=== PATIENT | female | born 1955 | race Caucasian/White ===

== ENCOUNTER 2017-08-16 16:46 | Inpatient (IN) | payer MEDICARE, MEDICAID ==
--- NOTE | 2017-08-16 17:03 | ED Physician Chart ---
ED Chief Complaint/HPI - Patient Information Date Seen:: 08/16/17 Time Seen:: 16:50 Chief Complaint:: AMS History of Present Illness:: onset x one day of AMS, ALOC; no report of trauma, H/As, LOC, neck pain, C/P, SOB, cough, Abd/Flank pain, A/N/V/D/C, fever, chills or urinary s/s Historian:: Patient, EMS Review:: Nurse's Note Reviewed, EMS run form Reviewed <Justice Smith - Last Filed: 08/16/17 16:59> - Patient Information Allergies:: Allergies Allergy/AdvReac Type Severity Reaction Status Date / Time Tetanus Vaccines & Toxoid Allergy Verified 08/16/17 17:05 Vitals:: Vital Signs - 8 hr 08/16/17 08/16/17 08/16/17 17:05 18:05 19:03 Temp 97.3 F 98.5 F HR 89 79 87 RR 18 14 20 BP 141/90 146/83 138/65 O2 Sat % 92 98 96 <Leonardo Perez - Last Filed: 08/16/17 20:10> ED Review of Systems - Review of Systems General/Constitutional: No fever, No chills, No weight loss, No weakness, No diaphoresis, No edema, No loss of appetite Skin: No skin lesions, No rash, No bruising Head: No headache, No light-headedness Eyes: No loss of vision, No pain, No diplopia ENT: No earache, No nasal drainage, No sore throat, No tinnitus Neck: No neck pain, No swelling, No thyromegaly, No stiffness, No mass noted Cardio Vascular: No chest pain, No palpitations, No PND, No orthopnea, No edema Pulmonary: No SOB, No cough, No sputum, No wheezing GI: No nausea, No vomiting, No diarrhea, No pain, No melena, No hematochezia, No constipation, No hematemesis G/U: No dysuria, No frequency, No hematuria Musculoskeletal: No bone or joint pain, No back pain, No muscle pain Endocrine: No polyuria, No polydipsia Psychiatric: No prior psych history, No depression, No anxiety, No suicidal ideation Hematopoietic: No bruising, No lymphadenopathy Allergic/Immuno: No urticaria, No angioedema Neurological: Syncope, Focal symptoms, Weakness, Paresthesia, Headache, No seizure, Dizziness, Confusion, Vertigo <Justice Smith - Last Filed: 08/16/17 16:59> ED Past Medical History - Past Medical History Obtainable: Yes Past Medical History: HTN, CVA/TIA, Dyslipidemia, Other (MS) Family History: Diabetes Melitus, HTN Social History: Non Smoker, No Alcohol, No Drug Use, Single, Care Facility Surgical History: None Psychiatricy History: None Medication: Reviewed <Justice Smith - Last Filed: 08/16/17 16:59> ED Physical Exam - Physical Examination General/Constitutional: Awake, Well-developed, well-nourished, Alert, No distress, GCS 15, Non-toxic appearing, Ambulatory Head: Atraumatic Eyes: Lids, conjuctiva normal, PERRL, EOMI Skin: Nl inspection, No rash, No skin lesions, No ecchymosis, Well hydrated, No lymphadenopathy ENMT: External ears, nose nl, Nasal exam nl, Lips, teeth, gums nl Neck: Nontender, Full ROM w/o pain, No JVD, No nuchal rigidity, No bruit, No mass, No stridor Respiratory: Nl effort/Exclusion, Clear to Auscultation, No Wheeze/Rhonchi/Rales Cardio Vascular: RRR, No murmur, gallop, rubs, NL S1 S2 GI: No tenderness/rebounding/guarding, No organomegaly, No hernia, Normal BS's, Nondistended, No mass/bruits, No McBurney tenderness : No CVA tenderness Extremities: No tenderness or effusion, Full ROM, normal strength in all extremities, No edema, Normal digits & nails Neuro/Psych: Alert/oriented, DTR's symmetric, Normal sensory exam, Normal motor strength, Judgement/insight normal, Mood normal, Normal gait Other Neuro/Psych comments:: + Quadriplegia Misc: Normal back, No paraspinal tenderness <Justice Smith - Last Filed: 08/16/17 16:59> ED Labs/Radiology/EKG Results - Lab Results Results: Laboratory Tests 08/16/17 08/16/17 08/16/17 17:15 17:15 17:15 WBC 10.5 RBC 4.06 Hgb 11.9 L Hct 33.8 L MCV 83.3 MCH 29.3 MCHC Differential 35.1 RDW 14.1 Plt Count 454 H MPV 7.3 Neutrophils (Manual) 59 Lymphocytes 36 Monocytes 5 PT INR PTT (Actin FS) Sodium 129 L Potassium 3.8 Chloride 98 Carbon Dioxide 25.3 Anion Gap 9.5 BUN 12 Creatinine 0.3 L Est GFR ( Amer) > 60.0 Est GFR (Non-Af Amer) > 60.0 BUN/Creatinine Ratio 40.0 Glucose 96 Whole Bld Lactic Acid Calcium 8.5 L Total Bilirubin 5.2 H AST 153 H ALT 380 H Alkaline Phosphatase 678 H Creatine Kinase 15 L Troponin I B-Natriuretic Peptide 20.0 Total Protein 6.9 Albumin 3.4 L Globulin 3.5 Albumin/Globulin Ratio 1.0 Triglycerides 128 Cholesterol 329 H LDL Cholesterol Direct 209 H HDL Cholesterol 37 Urine Source Urine Color Urine Clarity Urine pH Ur Specific [place] Urine Protein Urine Glucose (UA) Urine Ketones Urine Blood Urine Nitrate Urine Bilirubin Urine Urobilinogen Ur Leukocyte Esterase Urine RBC Urine WBC Ur Epithelial Cells Amorphous Sediment Urine Bacteria Urine Test 08/16/17 08/16/17 08/16/17 17:15 17:15 17:15 WBC RBC Hgb Hct MCV MCH MCHC Differential RDW Plt Count MPV Neutrophils (Manual) Lymphocytes Monocytes PT 11.9 H INR 1.13 PTT (Actin FS) 31.3 Sodium Potassium Chloride Carbon Dioxide Anion Gap BUN Creatinine Est GFR ( Amer) Est GFR (Non-Af Amer) BUN/Creatinine Ratio Glucose Whole Bld Lactic Acid Calcium Total Bilirubin AST ALT Alkaline Phosphatase Creatine Kinase Troponin I 0.02 B-Natriuretic Peptide Total Protein Albumin Globulin Albumin/Globulin Ratio Triglycerides Cholesterol LDL Cholesterol Direct HDL Cholesterol Urine Source CLEAN C Urine Color YELLOW Urine Clarity HAZY Urine pH 7.0 Ur Specific [place] 1.015 Urine Protein 100 H Urine Glucose (UA) NEGATIVE Urine Ketones NEGATIVE Urine Blood NEGATIVE Urine Nitrate POSITIVE H Urine Bilirubin MODERATE H Urine Urobilinogen 0.2 Ur Leukocyte Esterase TRACE H Urine RBC 0-1 Urine WBC 2-5 Ur Epithelial Cells MODERATE Amorphous Sediment MANY URATES Urine Bacteria MANY Urine Test 08/16/17 08/16/17 17:15 17:15 WBC RBC Hgb Hct MCV MCH MCHC Differential RDW Plt Count MPV Neutrophils (Manual) Lymphocytes Monocytes PT INR PTT (Actin FS) Sodium Potassium Chloride Carbon Dioxide Anion Gap BUN Creatinine Est GFR ( Amer) Est GFR (Non-Af Amer) BUN/Creatinine Ratio Glucose Whole Bld Lactic Acid 0.81 Calcium Total Bilirubin AST ALT Alkaline Phosphatase Creatine Kinase Troponin I B-Natriuretic Peptide Total Protein Albumin Globulin Albumin/Globulin Ratio Triglycerides Cholesterol LDL Cholesterol Direct HDL Cholesterol Urine Source Urine Color Urine Clarity Urine pH Ur Specific [place] Urine Protein Urine Glucose (UA) Urine Ketones Urine Blood Urine Nitrate Urine Bilirubin Urine Urobilinogen Ur Leukocyte Esterase Urine RBC Urine WBC Ur Epithelial Cells Amorphous Sediment Urine Bacteria Urine Test NEGATIVE Laboratory Tests 08/16/17 08/16/17 08/16/17 17:15 17:15 17:15 WBC 10.5 RBC 4.06 Hgb 11.9 L Hct 33.8 L MCV 83.3 MCH 29.3 MCHC Differential 35.1 RDW 14.1 Plt Count 454 H MPV 7.3 Neutrophils (Manual) 59 Lymphocytes 36 Monocytes 5 PT INR PTT (Actin FS) Sodium 129 L Potassium 3.8 Chloride 98 Carbon Dioxide 25.3 Anion Gap 9.5 BUN 12 Creatinine 0.3 L Est GFR ( Amer) > 60.0 Est GFR (Non-Af Amer) > 60.0 BUN/Creatinine Ratio 40.0 Glucose 96 Whole Bld Lactic Acid Calcium 8.5 L Total Bilirubin 5.2 H AST 153 H ALT 380 H Alkaline Phosphatase 678 H Creatine Kinase 15 L Troponin I B-Natriuretic Peptide 20.0 Total Protein 6.9 Albumin 3.4 L Globulin 3.5 Albumin/Globulin Ratio 1.0 Triglycerides 128 Cholesterol 329 H LDL Cholesterol Direct 209 H HDL Cholesterol 37 Urine Source Urine Color Urine Clarity Urine pH Ur Specific [place] Urine Protein Urine Glucose (UA) Urine Ketones Urine Blood Urine Nitrate Urine Bilirubin Urine Urobilinogen Ur Leukocyte Esterase Urine RBC Urine WBC Ur Epithelial Cells Amorphous Sediment Urine Bacteria Urine Test 08/16/17 08/16/17 08/16/17 17:15 17:15 17:15 WBC RBC Hgb Hct MCV MCH MCHC Differential RDW Plt Count MPV Neutrophils (Manual) Lymphocytes Monocytes PT 11.9 H INR 1.13 PTT (Actin FS) 31.3 Sodium Potassium Chloride Carbon Dioxide Anion Gap BUN Creatinine Est GFR ( Amer) Est GFR (Non-Af Amer) BUN/Creatinine Ratio Glucose Whole Bld Lactic Acid Calcium Total Bilirubin AST ALT Alkaline Phosphatase Creatine Kinase Troponin I 0.02 B-Natriuretic Peptide Total Protein Albumin Globulin Albumin/Globulin Ratio Triglycerides Cholesterol LDL Cholesterol Direct HDL Cholesterol Urine Source CLEAN C Urine Color YELLOW Urine Clarity HAZY Urine pH 7.0 Ur Specific [place] 1.015 Urine Protein 100 H Urine Glucose (UA) NEGATIVE Urine Ketones NEGATIVE Urine Blood NEGATIVE Urine Nitrate POSITIVE H Urine Bilirubin MODERATE H Urine Urobilinogen 0.2 Ur Leukocyte Esterase TRACE H Urine RBC 0-1 Urine WBC 2-5 Ur Epithelial Cells MODERATE Amorphous Sediment MANY URATES Urine Bacteria MANY Urine Test 08/16/17 08/16/17 17:15 17:15 WBC RBC Hgb Hct MCV MCH MCHC Differential RDW Plt Count MPV Neutrophils (Manual) Lymphocytes Monocytes PT INR PTT (Actin FS) Sodium Potassium Chloride Carbon Dioxide Anion Gap BUN Creatinine Est GFR ( Amer) Est GFR (Non-Af Amer) BUN/Creatinine Ratio Glucose Whole Bld Lactic Acid 0.81 Calcium Total Bilirubin AST ALT Alkaline Phosphatase Creatine Kinase Troponin I B-Natriuretic Peptide Total Protein Albumin Globulin Albumin/Globulin Ratio Triglycerides Cholesterol LDL Cholesterol Direct HDL Cholesterol Urine Source Urine Color Urine Clarity Urine pH Ur Specific [place] Urine Protein Urine Glucose (UA) Urine Ketones Urine Blood Urine Nitrate Urine Bilirubin Urine Urobilinogen Ur Leukocyte Esterase Urine RBC Urine WBC Ur Epithelial Cells Amorphous Sediment Urine Bacteria Urine Test NEGATIVE <Leonardo Perez - Last Filed: 08/16/17 20:10> ED Septic Shock - . Is Septic Shock (SBP<90, OR Lactate>4 mmol\L) present?: No <Justice Smith - Last Filed: 08/16/17 16:59> - . Is Septic Shock (SBP<90, OR Lactate>4 mmol\L) present?: No - <6hrs of presentation: Vital Signs: Vital Signs - 8 hr 08/16/17 08/16/17 08/16/17 17:05 18:05 19:03 Temp 97.3 F 98.5 F HR 89 79 87 RR 18 14 20 BP 141/90 146/83 138/65 O2 Sat % 92 98 96 <Leonardo Perez - Last Filed: 08/16/17 20:10> ED Reassessment (Disposition) - Reassessment Reassessment:: pt in stable condition altered consciousness head CT atrophy old left parietal infarct RAD READ - Diagnosis Diagnosis:: altered level of consciousness - Patient Disposition Discharge/Transfer:: Acute Care w/in this hosp Admitting Medical Physician:: Alexandra Oswald Time:: 20:10 Condition at Disposition:: Stable <Leonardo Perez - Last Filed: 08/16/17 20:10>
[2017-08-16] MEDS ORDERED: Sodium Chloride 0.9% 1,000 ML IV ONE (17:04)
[2017-08-16 17:16] LABS: HEMATOCRIT 33.8 % (41.0-60); HEMOGLOBIN 11.9 gm/dL (12-16); MEAN CELL VOLUME 83.3 fl (81-100); MEAN CORPUSCULAR HEMOGLOBIN 29.3 pg (27.0-31.0); MEAN CORPUSCULAR HGB CONC 35.1 pg (28.0-36.0); MEAN PLATELET VOLUME 7.3 fl; PLATELET COUNT 454 Th/cmm (150-400); RED BLOOD COUNT 4.06 Mil/cmm (3.80-5.10); RED CELL DISTRIBUTION WIDTH 14.1 % (11.5-20.0); WHITE BLOOD COUNT 10.5 Th/cmm (4.8-10.8)
[2017-08-16 17:35] LABS: URINE BILIRUBIN MODERATE (NEGATIVE); URINE BLOOD NEGATIVE (NEGATIVE); URINE GLUCOSE (UA) NEGATIVE (NEGATIVE); URINE KETONE NEGATIVE (NEGATIVE); URINE PROTEIN 100 mg/dL (NEGATIVE); URINE UROBILINOGEN 0.2 E.U./dL (0.2 - 1.0)
[2017-08-16 17:36] LABS: INR 1.13 (0.5-1.4); PROTHROMBIN TIME (TEST) 11.9 SECONDS (9.5-11.5)
[2017-08-16 17:39] LABS: URINE COLOR YELLOW
[2017-08-16 17:40] LABS: ALKALINE PHOSPHATASE 678 U/L (34-104); ANION GAP 9.5 (7.0-16.0); BILIRUBIN,TOTAL 5.2 mg/dL (0.3-1.0); BUN - UREA NITROGEN 12 mg/dL (7-25); CALCIUM SERUM 8.5 mg/dL (8.6-10.3); CARBON DIOXIDE 25.3 mEq/L (21.0-31.0); CHLORIDE 98 mEq/L (98-107); CHOLESTEROL 329 mg/dL (<200); CREATININE - SERUM 0.3 mg/dL (0.6-1.2); GLUCOSE 96 mg/dL (70-105); POTASSIUM SERUM 3.8 mEq/L (3.5-5.1); SGOT 153 U/L (13-39); SGPT/ALT 380 U/L (7-52); SODIUM SERUM 129 mEq/L (136-145); TRIGLYCERIDES 128 mg/dL (<150)
[2017-08-16 17:41] LABS: URINE AMORPHOUS SEDIMENT MANY URATES (NONE SEEN); URINE BACTERIA MANY /hpf (NONE SEEN); URINE RBC 0-1 /hpf (0-5)
[2017-08-16 17:42] LABS: URINE EPITHELIAL CELLS MODERATE /lpf (FEW)
[2017-08-16 18:06] LABS: NEUTROPHILS 59 % (40-80)
[2017-08-16] MEDS ORDERED: Hydrocodone/APAP 5mg/325mg Tab PO PRN (23:59)
[2017-08-16] MEDS ORDERED: Fleet Enema 135 mL RC PRN (23:59)
[2017-08-16] MEDS ORDERED: Levofloxacin 500mg/100mL 500 MG/100 ML BAG IV ONE (23:59)
[2017-08-17 00:16] VITALS: BP 146/91
[2017-08-17] MEDS: Sodium Chloride 0.9% 1,000 ML IV SCH (00:22)
[2017-08-17 05:26] LABS: HEMATOCRIT 32.5 % (41.0-60); HEMOGLOBIN 11.1 gm/dL (12-16); MEAN CELL VOLUME 82.5 fl (81-100); MEAN CORPUSCULAR HEMOGLOBIN 28.1 pg (27.0-31.0); MEAN CORPUSCULAR HGB CONC 34.1 pg (28.0-36.0); MEAN PLATELET VOLUME 7.4 fl; PLATELET COUNT 391 Th/cmm (150-400); RED BLOOD COUNT 3.94 Mil/cmm (3.80-5.10); RED CELL DISTRIBUTION WIDTH 14.3 % (11.5-20.0)
[2017-08-17 05:34] LABS: ANION GAP 8.9 (7.0-16.0); BUN - UREA NITROGEN 9 mg/dL (7-25); CALCIUM SERUM 8.4 mg/dL (8.6-10.3); CARBON DIOXIDE 25.7 mEq/L (21.0-31.0); CHLORIDE 102 mEq/L (98-107); GLUCOSE 94 mg/dL (70-105); POTASSIUM SERUM 3.6 mEq/L (3.5-5.1); SODIUM SERUM 133 mEq/L (136-145)
[2017-08-17 05:41] LABS: CREATININE - SERUM 0.3 mg/dL (0.6-1.2)
[2017-08-17 05:55] LABS: BAND NEUTROPHILE 1 % (0-10); EOSINOPHIL 2 % (0-5); NEUTROPHILS 67 % (40-80); TOTAL CELLS COUNTED 100; WHITE BLOOD COUNT 7.4 Th/cmm (4.8-10.8)
[2017-08-17] MEDS: Levothyroxine 0.05 Mg Tab PO SCH (07:04)
--- NOTE | 2017-08-17 08:19 | Diagnostic Imaging Report ---
Head CT without intravenous contrast Indication: Altered mental status Comparison: None Technique: Axial images were obtained from the vertex to the skull base without IV contrast. Coronal reconstructions were made. Total DLP: 896, [id number] FINDINGS: Images of the brain obtained without contrast demonstrate no evidence of a gross hemorrhage. Exam is limited due to motion. Atrophy is noted. Diffuse white matter disease is noted. The ventricles and basal cisterns are patent. No mass effect or midline shift. Assessment for skull fractures limited due to motion. No significant focal soft tissue swelling. The visualized paranasal sinuses are clear. IMPRESSION: Limited exam due to motion. No evidence of acute intracranial hemorrhage Atrophy. Diffuse supratentorial white matter disease which is nonspecific and may be due to chronic microvessel ischemia.. If indicated MRI may be obtained for further assessment.
--- NOTE | 2017-08-17 08:22 | Diagnostic Imaging Report ---
Portable chest x-ray HISTORY: Pain The overall heart size is difficult to assess with portable technique and a poor inspiration. No focal bony processes. No hilar or mediastinal abnormalities. IMPRESSION: No acute focal pulmonary processes.
[2017-08-17] MEDS ORDERED: LACTOSE REDUCED FOOD PO SCH (09:00)
[2017-08-17] MEDS ORDERED: Docusate Sodium/Senna Tab PO SCH (09:00)
[2017-08-17] MEDS ORDERED: Non-Formulary Item 1 EA (Omeprazole [Omeprazole] 20 MG) PO SCH (09:00)
[2017-08-17] MEDS ORDERED: [UNRECOGNIZED DRUG - OTHER] PO SCH (09:00)
[2017-08-17] MEDS: Pantoprazole 40 mg EC Tab PO SCH (10:00)
[2017-08-17] MEDS: Multivitamin w/ Minerals Tab PO SCH (10:00)
[2017-08-17] MEDS: Aspirin 81mg Chewable Tab PO SCH (10:00)
[2017-08-17] MEDS ORDERED: Influenza Vaccine 0.5 mL Syr IM ONE (14:26)
[2017-08-17] MEDS ORDERED: Pneumococcal Vaccine 0.5 mL Vial IM ONE (14:26)
[2017-08-17] MEDS ORDERED: VTE Chemical Prophylaxis Screen/Admission MC PRN (14:59)
[2017-08-17] MEDS ORDERED: Probiotic Screen MC PRN (15:48)
--- NOTE | 2017-08-17 20:49 | History & Physical ---
ADMIT DATE: 08/17/2017 HISTORY OF PRESENT ILLNESS: The patient came because of the altered level of consciousness. The patient has no history of trauma, no history of any other problem. The patient was seen in the Emergency Room, was evaluated, and was admitted for history of altered level of consciousness, history of prior quadriplegia, and the patient is known to have history of hypertension, history of CVA, and history of hyperlipidemia . FAMILY HISTORY: Diabetes. PHYSICAL EXAMINATION CARDIOVASCULAR SYSTEM: S1, S2 heard. ABDOMEN: Soft. Bowel sounds are present. CENTRAL NERVOUS SYSTEM: The patient has history of quadriparesis. LABORATORY DATA: The patient's BUN of 12, creatinine ___ . The patient's hemoglobin was 11.9. Sodium was low at 129. Electrolytes were normal. Urine showed positive nitrites ____ UTI, and the patient's CAT scan was ____. DIAGNOSES: Altered level of consciousness, metabolic encephalopathy, urinary tract infection, and history of quadriparesis. PLAN: We will give IV antibiotics ____ doctor give her sodium chloride, and I will follow the patient. JOB# [id number]
[2017-08-17] MEDS: Lactobacillus Rhamnosus 10 Billion CFU Capsule PO SCH (21:15)
[2017-08-17] MEDS: Levofloxacin 500mg/100mL Premix Bag IV SCH (21:16)
[2017-08-18] MEDS: Sodium Chloride 0.9% 1,000 ML IV SCH ×2 (01:51→21:32)
[2017-08-18] MEDS: Levothyroxine 0.05 Mg Tab PO SCH (06:55)
[2017-08-18] MEDS ORDERED: GLATIRAMER ACETATE 40 MG SC SCH (09:00)
[2017-08-18] MEDS: Multivitamin w/ Minerals Tab PO SCH (09:58)
[2017-08-18] MEDS: Lactobacillus Rhamnosus 10 Billion CFU Capsule PO SCH (09:58)
[2017-08-18] MEDS: Pantoprazole 40 mg EC Tab PO SCH (09:58)
[2017-08-18] MEDS: Aspirin 81mg Chewable Tab PO SCH (09:59)
--- NOTE | 2017-08-18 12:06 | General Progress Note ---
Subjective - Review of Systems Events since last encounter: patient awake and confused in no acute distress Objective - Results Result Diagrams: 08/17/17 05:01 08/17/17 05:01 Recent Labs: Laboratory Last Values WBC 7.4 Th/cmm (4.8-10.8) D 08/17/17 05:01 RBC 3.94 Mil/cmm (3.80-5.10) 08/17/17 05:01 Hgb 11.1 gm/dL (12-16) L 08/17/17 05:01 Hct 32.5 % (41.0-60) L 08/17/17 05:01 MCV 82.5 fl (81-100) 08/17/17 05:01 MCH 28.1 pg (27.0-31.0) 08/17/17 05:01 MCHC Differential 34.1 pg (28.0-36.0) 08/17/17 05:01 RDW 14.3 % (11.5-20.0) 08/17/17 05:01 Plt Count 391 Th/cmm (150-400) 08/17/17 05:01 MPV 7.4 fl 08/17/17 05:01 Band Neutrophils % 1 % (0-10) 08/17/17 05:01 Neutrophils (Manual) 67 % (40-80) 08/17/17 05:01 Lymphocytes 26 % (20-50) 08/17/17 05:01 Monocytes 4 % (2-10) 08/17/17 05:01 Eosinophils 2 % (0-5) 08/17/17 05:01 PT 11.9 SECONDS (9.5-11.5) H 08/16/17 17:15 INR 1.13 (0.5-1.4) 08/16/17 17:15 PTT (Actin FS) 31.3 SECONDS (26.0-38.0) 08/16/17 17:15 Sodium 133 mEq/L (136-145) L 08/17/17 05:01 Potassium 3.6 mEq/L (3.5-5.1) 08/17/17 05:01 Chloride 102 mEq/L (98-107) 08/17/17 05:01 Carbon Dioxide 25.7 mEq/L (21.0-31.0) 08/17/17 05:01 Anion Gap 8.9 (7.0-16.0) 08/17/17 05:01 BUN 9 mg/dL (7-25) 08/17/17 05:01 Creatinine 0.3 mg/dL (0.6-1.2) L 08/17/17 05:01 Est GFR ( Amer) > 60.0 ml/min (>90) 08/17/17 05:01 Est GFR (Non-Af Amer) > 60.0 ml/min 08/17/17 05:01 BUN/Creatinine Ratio 30.0 08/17/17 05:01 Glucose 94 mg/dL (70-105) 08/17/17 05:01 Whole Bld Lactic Acid 0.81 mmol/L (0.60-1.99) 08/16/17 17:15 Calcium 8.4 mg/dL (8.6-10.3) L 08/17/17 05:01 Total Bilirubin 5.2 mg/dL (0.3-1.0) H 08/16/17 17:15 AST 153 U/L (13-39) H 08/16/17 17:15 ALT 380 U/L (7-52) H 08/16/17 17:15 Alkaline Phosphatase 678 U/L (34-104) H 08/16/17 17:15 Creatine Kinase 15 U/L (30-223) L 08/16/17 17:15 Troponin I 0.02 ng/mL (0.01-0.05) 08/16/17 17:15 B-Natriuretic Peptide 20.0 pg/mL (5.0-100.0) 08/16/17 17:15 Total Protein 6.9 gm/dL (6.0-8.3) 08/16/17 17:15 Albumin 3.4 gm/dL (3.7-5.3) L 08/16/17 17:15 Globulin 3.5 gm/dL 08/16/17 17:15 Albumin/Globulin Ratio 1.0 (1.0-1.8) 08/16/17 17:15 Triglycerides 128 mg/dL (<150) 08/16/17 17:15 Cholesterol 329 mg/dL (<200) H 08/16/17 17:15 LDL Cholesterol Direct 209 mg/dL (75-193) H 08/16/17 17:15 HDL Cholesterol 37 mg/dL (23-92) 08/16/17 17:15 Urine Source CLEAN C 08/16/17 17:15 Urine Color YELLOW 08/16/17 17:15 Urine Clarity HAZY (CLEAR) 08/16/17 17:15 Urine pH 7.0 (4.6 - 8.0) 08/16/17 17:15 Ur Specific [place] 1.015 (1.005-1.030) 08/16/17 17:15 Urine Protein 100 mg/dL (NEGATIVE) H 08/16/17 17:15 Urine Glucose (UA) NEGATIVE mg/dL (NEGATIVE) 08/16/17 17:15 Urine Ketones NEGATIVE mg/dL (NEGATIVE) 08/16/17 17:15 Urine Blood NEGATIVE (NEGATIVE) 08/16/17 17:15 Urine Nitrate POSITIVE (NEGATIVE) H 08/16/17 17:15 Urine Bilirubin MODERATE (NEGATIVE) H 08/16/17 17:15 Urine Urobilinogen 0.2 E.U./dL (0.2 - 1.0) 08/16/17 17:15 Ur Leukocyte Esterase TRACE (NEGATIVE) H 08/16/17 17:15 Urine RBC 0-1 /hpf (0-5) 08/16/17 17:15 Urine WBC 2-5 /hpf (0-5) 08/16/17 17:15 Ur Epithelial Cells MODERATE /lpf (FEW) 08/16/17 17:15 Amorphous Sediment MANY URATES (NONE SEEN) 08/16/17 17:15 Urine Bacteria MANY /hpf (NONE SEEN) 08/16/17 17:15 Urine Test NEGATIVE 08/16/17 17:15 - Physical Exam Vitals and I&O: Vital Signs Temp 98.6 F 08/18/17 11:39 Pulse 99 08/18/17 11:39 Resp 19 08/18/17 11:39 BP 179/92 08/18/17 11:39 Pulse Ox 97 08/18/17 11:39 Intake & Output 08/17/17 08/18/17 08/18/17 18:59 06:59 18:59 Intake Total 823.333 558.333 Output Total 900 950 Balance -76.667 -391.667 Weight (lbs) 53.524 kg 55.877 kg Intake: Intake, IV Amount 423.333 558.333 Levofloxacin 500mg/100mL 100 500 mg In 100 ml @ 100 mls/hr IV Q24HR [facility] Rx#: [id number] Sodium Chloride 0.9% 1, 423.333 458.333 000 ml @ 100 mls/hr IV . Q10H [facility] Rx#:[id number] Oral 400 Output: Urine 900 950 Other: # Bowel Movements 2 Stool Characteristics Soft Active Medications: Current Medications Acetaminophen (Tylenol) 650 mg PO Q4H PRN PRN Reason: PAIN OR FEVER >100.4 Acetaminophen/Hydrocodone Bitart (Dwight 5mg/325mg) 1 tab PO Q4H PRN PRN Reason: PAIN Stop: 10/15/17 23:58 Amlodipine Besylate (Norvasc) 5 mg PO DAILY [facility] Stop: 10/16/17 08:59 Last Admin: 08/18/17 09:59 Dose: 5 mg Ascorbic Acid (Vitamin C) 500 mg PO DAILY [facility] Stop: 10/16/17 08:59 Last Admin: 08/18/17 09:59 Dose: 500 mg Aspirin (Aspirin Chewable) 81 mg PO DAILY [facility] Stop: 10/16/17 08:59 Last Admin: 08/18/17 09:59 Dose: 81 mg Bisacodyl (Dulcolax 10 Mg Supp) 10 mg RC Q72H PRN PRN Reason: CONSTIPATION (NO BM) Stop: 10/15/17 23:58 Carbamazepine (Tegretol) 400 mg PO QID [facility] PRN Reason: Protocol Stop: 10/16/17 08:59 Last Admin: 08/18/17 09:58 Dose: 400 mg Docusate Sodium (Colace) 250 mg PO BID [facility] Stop: 10/16/17 08:59 Last Admin: 08/18/17 09:59 Dose: 250 mg Fluoxetine HCl (Prozac) 10 mg PO DAILY [facility] PRN Reason: Protocol Stop: 10/16/17 08:59 Last Admin: 08/18/17 10:45 Dose: 10 mg Heparin Sodium (Porcine) (Heparin) 5,000 units SUBQ Q12HR [facility] Stop: 10/16/17 20:59 Last Admin: 08/18/17 10:46 Dose: 5,000 units Sodium Chloride (Nacl 0.9%) 1,000 mls @ 100 mls/hr IV .Q10H [facility] Stop: 10/15/17 23:58 Last Infusion: 08/18/17 06:26 Dose: 100 mls/hr Levofloxacin (Levaquin Pb) 500 mg in 100 mls @ 100 mls/hr IV Q24HR [facility] Stop: 10/16/17 20:59 Last Infusion: 08/18/17 06:26 Dose: Infused Lactobacillus Rhamnosus (Culturelle) 1 each PO DAILY [facility] Stop: 10/16/17 16:59 Last Admin: 08/18/17 09:58 Dose: 1 each Levothyroxine Sodium (Synthroid) 0.05 mg PO QDAC [facility] Stop: 10/16/17 07:29 Last Admin: 08/18/17 06:55 Dose: 0.05 mg Miscellaneous (Glatiramer Acetate [Copaxone]) 40 mg SC MWF [facility] Stop: 10/17/17 08:59 Miscellaneous (Vte Chemical Prophylaxis Screen/ Admission) 1 ea PRN PRN PRN Reason: PROTOCOL Stop: 10/16/17 14:58 Miscellaneous (Probiotic Screen) 1 ea PRN PRN PRN Reason: PROTOCOL Stop: 10/16/17 15:47 Pantoprazole Sodium (Protonix) 40 mg PO DAILY [facility] Stop: 10/16/17 08:59 Last Admin: 08/18/17 09:58 Dose: 40 mg Sodium Phosphate (Fleet Enema) 135 ml RC Q24H PRN PRN Reason: Constipation Stop: 10/15/17 23:58 General: No acute distress HEENT: Atraumatic Neck: Thyromegaly Cardiovascular: Regular rate, Normal S1 Abdomen: Bowel sounds Assessment/Plan - Problem List Patient Problems: All Active Problems ALTERED MENTAL STATUS WITH FEVER (Acute) - Plan Plan: as per order sheet Nutritional Asmnt/Malnutr-PDOC - Dietary Evaluation Malnutrition Findings (Please click <Entered> for more info): Nutritional Asmnt/Malnutrition Start: 08/17/17 17: 13 Text: Status: Complete Freq: Document 08/17/17 17:13 VTAN (Rec: 08/17/17 17:29 [email or web address]) Nutritional Asmnt/Malnutrition Patient General Information Nutritional Screening Consult Diagnosis UTI, ALOC Pertinent Medical Hx/Surgical Hx HTN, CVA/TIA, dyslipidemia, MS , DM, HTN Subjective Information Nutrition Consult for Vince Score 11. Pt was seen resting in bed, RN at bedside providing meds. Spoke with [facility] RN, reported that suspected DTI L heel. Current Diet Order/ Nutrition Support Mechanical Soft, Ground, BASHIR Patient / S.O Can't verbalize diet edu Pertinent Medications Vitamin C 500 mg daily, dulcolax, colace, heparin, culturelle, synthroid, protonix, NS IV, fleet enema Pertinent Labs H/H 11.1/32.5 L, Na 133 L, Cr 0.3 L, Gluc 94 08/16: TBili 5.2 H, AST 153 H, ALT 380 H, ALP 678 H, CK 15 L , ALB 3.4 L, Cholesterol 329 H Nutritional Hx/Data Height 1.63 m Height (Calculated Centimeters) 162.6 Current Weight (lbs) 53.524 kg Weight (Calculated Kilograms) 53.5 Weight (Calculated Grams) 41503.9 Avant Body Weight 120 lb, 55 kg % Avant Body Weight 98 Weight Status Approriate GI Symptoms GI Symptoms None Difficult in: Chewing Food Allergies No 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 Per [facility] RN note - possible SDTI L posterior Heel Estimated Nutritional Goals BEE in Kcals: Using Current wt Calories/Kcals/Kg 25-30 kcal/kg for Maintenance Kcals Calculated 1559-3994 kcal/day Protein: Using Current wt Protein g/k.3-1.5 gm/kg for Wound Healing Protein Calculated 70-81 gm/day Fluid: ml 3351-3834 ml/day (1 ml/kcal for Maintenance) Nutritional Problem 1. Problem Problem Increase protein needs related to Etiology altered skin integrity as evidenced by Signs/Symptoms: possible suspected DTI on L posterior heel Intervention/Recommendation Recommendations by RD Protein supplementation Comments 1. Continue Mechanical Soft, Ground, BASHIR diet per MD. 2. Consider Boost Glucose Control BID (500 kcal, 28 gm protein) if PO intakes consistently <50%. 3. Recommend Multi-vitamin with minerals (Theragran) 1 tab PO daily for optimal wound healing. 4. Consider Zinc Sulfate 220 mg x10 days for optimal wound healing. Expected Outcomes/Goals Expected Outcomes/Goals Goal: PO intakes to meet >80% of estimated needs; Nutrition wound healing protocol in place Monitor: PO intakes/tolerance, labs, skin integrity, GI function F/U 3-5 days as MODERATE risk (08/20-)
[2017-08-18] MEDS: Levofloxacin 500mg/100mL Premix Bag IV SCH (21:24)
--- NOTE | 2017-08-18 22:41 | Consultation ---
DATE OF CONSULTATION: 08/18/2017 ATTENDING: Dr. Vinay Oswald. CERTIFIED MEDICINE AIDE: Kishor Vasques M.D. REASON FOR CONSULTATION: Hyponatremia and fluid management. HISTORY OF PRESENT ILLNESS: This is a 62-year-old female with a past medical history of multiple sclerosis, who came in because of altered level of consciousness. Fifteen years prior to admission, the patient was diagnosed to have multiple sclerosis. She has had multiple admissions in the past for management of her multiple sclerosis. A few hours prior to admission, she was found [facility] staff to have an altered level of consciousness. She was then brought to the Emergency Room. A CT scan of the head revealed no acute intracranial hemorrhage, atrophy, and microscopic vessel ischemia. Chest x-ray showed no acute disease. However, a urinalysis was suggestive of a urinary tract infection. White count was 10.5. Her sodium level was 137 about 3 months ago and 135 last month. However, she came in now with a sodium of 129. PAST MEDICAL HISTORY: 1. Multiple sclerosis. 2. Essential hypertension. 3. Epilepsy. 4. Dyslipidemia. 5. Osteoporosis. 6. Functional quadriplegia. 7. Major depression. 8. TMJ. 9. Dementia. PAST SURGICAL HISTORY: Status post total abdominal hysterectomy. CURRENT MEDICATIONS: She is currently on acetaminophen, amlodipine, ascorbic acid, aspirin, bisacodyl, Tegretol, Colace, fluoxetine, ____, hydrocodone, APAP, lactobacillus, Levofloxacin, Levothyroxine, NS at 100 mL per hour, pantoprazole, Probiotics. ALLERGIES: Allergic to tetanus as well as toxoid. SOCIAL HISTORY: No history of alcohol or tobacco abuse. She is now residing at an extended care facility due to her MS. FAMILY HISTORY: Noncontributory to present illness. REVIEW OF SYSTEMS: CONSTITUTIONAL: She did complain of weakness due to her MS, appetite had been fair, no fever, no chills. HEENT: She has occasional headaches. No lightheadedness, occasional dizziness. Vision and hearing acuity remain within acceptable limits. CARDIORESPIRATORY: She has a history of hypertension; however, at this point no chest pain, palpitations, diaphoresis, cough, no shortness of breath. GASTROINTESTINAL: No nausea and vomiting, abdominal pain or cramping, hematemesis, melena, hematochezia, no diarrhea. ENDOCRINE: No history of diabetes, but has dyslipidemia and hypothyroidism. MUSCULOSKELETAL: Multiple joint arthralgias. GENITOURINARY: No history of kidney failure, but has occasional electrolyte abnormalities. Urine was suggestive of a UTI, no dysuria, no hematuria. HEMATOLOGIC: History of anemia of chronic disease. NEUROPSYCH: No syncopal episode. No seizure activity, but has a history of epilepsy. She also has a history of multiple sclerosis. PHYSICAL EXAMINATION: NEUROLOGIC: The patient is awake, verbal, coherent, and not in any distress. VITAL SIGNS: Her blood pressure now is 135/77, pulse 99, temperature 98.6 degrees. SKIN: Good turgor, warm, no rash, no jaundice appreciated. HEENT: Head normocephalic, atraumatic. Eyes; extraocular muscles intact. Pupils equal, round, reactive to light and accommodates. Anicteric sclerae. [place] conjunctivae. Nose, midline nasal septum. Mouth: Dry mucosa with adequate dentition. NECK: Supple. No adenopathy, no thyromegaly, no bruits. Trachea palpated in the midline. CHEST AND CVS: S1, S2. No rub, murmur, or gallop appreciated. Point of maximal impulse, fifth intercostal space, left midclavicular line. No abdominal or femoral bruits appreciated. LUNGS: Equal expansion. No use of accessory muscles. No supraclavicular retractions, decreased breath sounds, and clear to auscultation without any wheeze. BREASTS: Symmetrical, without any discharge. ABDOMEN: Flat, soft. Positive for bowel sounds. No bruits, either diastolic or systolic. RECTAL: Deferred. GENITOURINARY: Normal-appearing female genitalia. MUSCULOSKELETAL: No effusions present in her joints, but unable to assess her range of motion. EXTREMITIES: She has no evidence of any edema, cyanosis, nor clubbing with full extension of both feet. NEUROLOGIC: The patient is awake, but due to her MS she was not able to comprehend my commands, so I was not able to pursue further my neuro exam. LABORATORY DATA: Did reveal white count of 7.4, hemoglobin 11.1, hematocrit 32.5, platelets 391, polys 67%, sodium 133, potassium 3.6, chloride 102, bicarbonate 25, BUN 9, creatinine 0.3, calcium 8.4, albumin 3.4. Total bili is 5.2, AST 153, ALT 678. IMPRESSION: 1. Hyponatremia, possibly due to increased sodium loss as compared to free water loss. She had a good response to fluids with improvement in her sodium level. Upon exam, the patient was on the dry side as well as her oral intake had been poor lately as per the father at bedside. However, the patient also is taking medications that could cause syndrome of inappropriate antidiuretic hormone secretion such as Tegretol as well as SSRI. 2. Altered level of consciousness, doubt that this is from the hyponatremia because the sodium level is not significantly low. The possibility is that this may have been due to her multiple sclerosis, multiple psychotic and epileptic medications as well as the development of metabolic encephalopathy brought about by her severe liver failure, as well as sepsis, or even postictal from unwitnessed seizure activity. 3. Complicated urinary tract infection. 4. Chronic liver cirrhosis, possibly from her neurologic meds. 5. Hypothyroidism. 6. Essential hypertension. 7. Epilepsy. 8. Dyslipidemia. 9. Osteoporosis. 10. Functional quadriplegia. 11. Major depression. 12. Temporomandibular joint disorder. PLAN: 1. Continue on with IV fluids of normal saline. 2. Urine spot sodium. 3. Serum osmolality and uric acid. 4. Follow up electrolytes as well as ammonia level. 5. Urine C and S. 6. Consider discontinuing Tegretol along with Prozac if the hyponatremia persists. Thank you Dr. Oswald, for this consult. I will follow the patient closely with you. JOB# [id number]
[2017-08-19 05:46] LABS: % BASOPHILS 0.7 % (0.0-2.0); % EOSINOPHILS 1.6 % (0.0-5.0); % LYMPHOCYTES 33.8 % (20.0-50.0); % NEUTROPHILS 59.9 % (40.0-80.0); HEMATOCRIT 34.2 % (41.0-60); HEMOGLOBIN 11.6 gm/dL (12-16); MEAN CORPUSCULAR HEMOGLOBIN 28.1 pg (27.0-31.0); MEAN CORPUSCULAR HGB CONC 33.9 pg (28.0-36.0); MEAN PLATELET VOLUME 7.2 fl; NEUTROPHILE ABSOLUTE 4.1 Th/cmm (1.8-8.0); PLATELET COUNT 365 Th/cmm (150-400); RED BLOOD COUNT 4.12 Mil/cmm (3.80-5.10); RED CELL DISTRIBUTION WIDTH 14.1 % (11.5-20.0); WHITE BLOOD COUNT 6.8 Th/cmm (4.8-10.8)
[2017-08-19 06:08] LABS: ANION GAP 10.3 (7.0-16.0); BUN - UREA NITROGEN 4 mg/dL (7-25); CALCIUM SERUM 8.9 mg/dL (8.6-10.3); CHLORIDE 102 mEq/L (98-107); GLUCOSE 100 mg/dL (70-105); MAGNESIUM 1.8 mg/dL (1.9-2.7); PHOSPHOROUS 2.4 mg/dL (2.5-5.0); POTASSIUM SERUM 3.3 mEq/L (3.5-5.1); SODIUM SERUM 136 mEq/L (136-145); URIC ACID 2.2 mg/dL (2.3-6.6)
[2017-08-19 06:09] LABS: CREATININE - SERUM 0.2 mg/dL (0.6-1.2)
[2017-08-19] MEDS: Levothyroxine 0.05 Mg Tab PO SCH (06:32)
[2017-08-19] MEDS: Sodium Chloride 0.9% 1,000 ML IV SCH (06:47)
[2017-08-19] MEDS: Aspirin 81mg Chewable Tab PO SCH (09:18)
[2017-08-19] MEDS: Pantoprazole 40 mg EC Tab PO SCH (09:18)
[2017-08-19] MEDS: Lactobacillus Rhamnosus 10 Billion CFU Capsule PO SCH (09:18)
[2017-08-19] MEDS: Multivitamin w/ Minerals Tab PO SCH (09:19)
--- NOTE | 2017-08-19 10:23 | General Progress Note ---
Subjective - Review of Systems Events since last encounter: no acute distress h/o multiple sclerosis Objective - Results Result Diagrams: 08/19/17 05:35 08/19/17 05:35 Recent Labs: Laboratory Last Values WBC 6.8 Th/cmm (4.8-10.8) 08/19/17 05:35 RBC 4.12 Mil/cmm (3.80-5.10) 08/19/17 05:35 Hgb 11.6 gm/dL (12-16) L 08/19/17 05:35 Hct 34.2 % (41.0-60) L 08/19/17 05:35 MCV 83.0 fl (81-100) 08/19/17 05:35 MCH 28.1 pg (27.0-31.0) 08/19/17 05:35 MCHC Differential 33.9 pg (28.0-36.0) 08/19/17 05:35 RDW 14.1 % (11.5-20.0) 08/19/17 05:35 Plt Count 365 Th/cmm (150-400) 08/19/17 05:35 MPV 7.2 fl 08/19/17 05:35 Neutrophils % 59.9 % (40.0-80.0) 08/19/17 05:35 Band Neutrophils % 1 % (0-10) 08/17/17 05:01 Lymphocytes % 33.8 % (20.0-50.0) 08/19/17 05:35 Monocytes % 4.0 % (2.0-10.0) 08/19/17 05:35 Eosinophils % 1.6 % (0.0-5.0) 08/19/17 05:35 Basophils % 0.7 % (0.0-2.0) 08/19/17 05:35 Neutrophils (Manual) 67 % (40-80) 08/17/17 05:01 Lymphocytes 26 % (20-50) 08/17/17 05:01 Monocytes 4 % (2-10) 08/17/17 05:01 Eosinophils 2 % (0-5) 08/17/17 05:01 PT 11.9 SECONDS (9.5-11.5) H 08/16/17 17:15 INR 1.13 (0.5-1.4) 08/16/17 17:15 PTT (Actin FS) 31.3 SECONDS (26.0-38.0) 08/16/17 17:15 Sodium 136 mEq/L (136-145) 08/19/17 05:35 Potassium 3.3 mEq/L (3.5-5.1) L 08/19/17 05:35 Chloride 102 mEq/L (98-107) 08/19/17 05:35 Carbon Dioxide 27.0 mEq/L (21.0-31.0) 08/19/17 05:35 Anion Gap 10.3 (7.0-16.0) 08/19/17 05:35 BUN 4 mg/dL (7-25) L 08/19/17 05:35 Creatinine 0.2 mg/dL (0.6-1.2) L 08/19/17 05:35 Est GFR ( Amer) > 60.0 ml/min (>90) 08/19/17 05:35 Est GFR (Non-Af Amer) > 60.0 ml/min 08/19/17 05:35 BUN/Creatinine Ratio 20.0 08/19/17 05:35 Glucose 100 mg/dL (70-105) 08/19/17 05:35 Whole Bld Lactic Acid 0.81 mmol/L (0.60-1.99) 08/16/17 17:15 Uric Acid 2.2 mg/dL (2.3-6.6) L 08/19/17 05:35 Calcium 8.9 mg/dL (8.6-10.3) 08/19/17 05:35 Phosphorus 2.4 mg/dL (2.5-5.0) L 08/19/17 05:35 Magnesium 1.8 mg/dL (1.9-2.7) L 08/19/17 05:35 Total Bilirubin 5.2 mg/dL (0.3-1.0) H 08/16/17 17:15 AST 153 U/L (13-39) H 08/16/17 17:15 ALT 380 U/L (7-52) H 08/16/17 17:15 Alkaline Phosphatase 678 U/L (34-104) H 08/16/17 17:15 Ammonia 69 umol/L (16-53) H 08/19/17 05:35 Creatine Kinase 15 U/L (30-223) L 08/16/17 17:15 Troponin I 0.02 ng/mL (0.01-0.05) 08/16/17 17:15 B-Natriuretic Peptide 20.0 pg/mL (5.0-100.0) 08/16/17 17:15 Total Protein 6.9 gm/dL (6.0-8.3) 08/16/17 17:15 Albumin 3.4 gm/dL (3.7-5.3) L 08/16/17 17:15 Globulin 3.5 gm/dL 08/16/17 17:15 Albumin/Globulin Ratio 1.0 (1.0-1.8) 08/16/17 17:15 Triglycerides 128 mg/dL (<150) 08/16/17 17:15 Cholesterol 329 mg/dL (<200) H 08/16/17 17:15 LDL Cholesterol Direct 209 mg/dL (75-193) H 08/16/17 17:15 HDL Cholesterol 37 mg/dL (23-92) 08/16/17 17:15 TSH 3.92 uIU/ml (0.34-5.60) 08/19/17 05:35 Urine Source CLEAN C 08/16/17 17:15 Urine Color YELLOW 08/16/17 17:15 Urine Clarity HAZY (CLEAR) 08/16/17 17:15 Urine pH 7.0 (4.6 - 8.0) 08/16/17 17:15 Ur Specific [place] 1.015 (1.005-1.030) 08/16/17 17:15 Urine Protein 100 mg/dL (NEGATIVE) H 08/16/17 17:15 Urine Glucose (UA) NEGATIVE mg/dL (NEGATIVE) 08/16/17 17:15 Urine Ketones NEGATIVE mg/dL (NEGATIVE) 08/16/17 17:15 Urine Blood NEGATIVE (NEGATIVE) 08/16/17 17:15 Urine Nitrate POSITIVE (NEGATIVE) H 08/16/17 17:15 Urine Bilirubin MODERATE (NEGATIVE) H 08/16/17 17:15 Urine Urobilinogen 0.2 E.U./dL (0.2 - 1.0) 08/16/17 17:15 Ur Leukocyte Esterase TRACE (NEGATIVE) H 08/16/17 17:15 Urine RBC 0-1 /hpf (0-5) 08/16/17 17:15 Urine WBC 2-5 /hpf (0-5) 08/16/17 17:15 Ur Epithelial Cells MODERATE /lpf (FEW) 08/16/17 17:15 Amorphous Sediment MANY URATES (NONE SEEN) 08/16/17 17:15 Urine Bacteria MANY /hpf (NONE SEEN) 08/16/17 17:15 Urine Test NEGATIVE 08/16/17 17:15 - Physical Exam Vitals and I&O: Vital Signs Temp 97.4 F 08/19/17 08:00 Pulse 65 08/19/17 09:18 Resp 19 08/19/17 08:00 BP 167/83 08/19/17 09:18 Pulse Ox 100 08/19/17 08:00 Intake & Output 08/18/17 08/19/17 08/19/17 18:59 06:59 18:59 Intake Total 7898.513 8648.000 Output Total 2200 2350 Balance -908.333 -1225.000 Weight (lbs) 39.463 kg 64.909 kg Intake: Intake, IV Amount 048.311 6253.000 Levofloxacin 500mg/100mL 100 500 mg In 100 ml @ 100 mls/hr IV Q24HR [facility] Rx#: [id number] Sodium Chloride 0.9% 1, 541.667 925.000 000 ml @ 100 mls/hr IV . Q10H [facility] Rx#:[id number] Oral 750 100 Output: Urine 2200 2350 Other: Stool Characteristics Soft Soft Formed Active Medications: Current Medications Acetaminophen (Tylenol) 650 mg PO Q4H PRN PRN Reason: PAIN OR FEVER >100.4 Acetaminophen/Hydrocodone Bitart ([place] 5mg/325mg) 1 tab PO Q4H PRN PRN Reason: PAIN Stop: 10/15/17 23:58 Amlodipine Besylate (Norvasc) 5 mg PO DAILY [facility] Stop: 10/16/17 08:59 Last Admin: 08/19/17 09:18 Dose: 5 mg Ascorbic Acid (Vitamin C) 500 mg PO DAILY ILEANA Stop: 10/16/17 08:59 Last Admin: 08/19/17 09:18 Dose: 500 mg Aspirin (Aspirin Chewable) 81 mg PO DAILY ILE[facility] Stop: 10/16/17 08:59 Last Admin: 08/19/17 09:18 Dose: 81 mg Bisacodyl (Dulcolax 10 Mg Supp) 10 mg RC Q72H PRN PRN Reason: CONSTIPATION (NO BM) Stop: 10/15/17 23:58 Carbamazepine (Tegretol) 400 mg PO QID ILE[facility] PRN Reason: Protocol Stop: 10/16/17 08:59 Last Admin: 08/19/17 09:19 Dose: 400 mg Docusate Sodium (Colace) 250 mg PO BID ILE[facility] Stop: 10/16/17 08:59 Last Admin: 08/19/17 09:18 Dose: 250 mg Fluoxetine HCl (Prozac) 10 mg PO DAILY ILEANA PRN Reason: Protocol Stop: 10/16/17 08:59 Last Admin: 08/19/17 09:19 Dose: 10 mg Heparin Sodium (Porcine) (Heparin) 5,000 units SUBQ Q12HR [facility] Stop: 10/16/17 20:59 Last Admin: 08/19/17 09:20 Dose: 5,000 units Sodium Chloride (Nacl 0.9%) 1,000 mls @ 100 mls/hr IV .Q10H [facility] Stop: 10/15/17 23:58 Last Admin: 08/19/17 06:47 Dose: 100 mls/hr Levofloxacin (Levaquin Pb) 500 mg in 100 mls @ 100 mls/hr IV Q24HR [facility] Stop: 10/16/17 20:59 Last Infusion: 08/19/17 06:09 Dose: Infused Lactobacillus Rhamnosus (Culturelle) 1 each PO DAILY ILEANA Stop: 10/16/17 16:59 Last Admin: 08/19/17 09:18 Dose: 1 each Levothyroxine Sodium (Synthroid) 0.05 mg PO QDAC [facility] Stop: 10/16/17 07:29 Last Admin: 08/19/17 06:32 Dose: 0.05 mg Miscellaneous (Glatiramer Acetate [Copaxone]) 40 mg SC MWF [facility] Stop: 10/17/17 08:59 Miscellaneous (Vte Chemical Prophylaxis Screen/ Admission) 1 ea [facility] PRN PRN PRN Reason: PROTOCOL Stop: 10/16/17 14:58 Miscellaneous (Probiotic Screen) 1 ea [facility] PRN PRN PRN Reason: PROTOCOL Stop: 10/16/17 15:47 Pantoprazole Sodium (Protonix) 40 mg PO DAILY [facility] Stop: 10/16/17 08:59 Last Admin: 08/19/17 09:18 Dose: 40 mg Sodium Phosphate (Fleet Enema) 135 ml RC Q24H PRN PRN Reason: Constipation Stop: 10/15/17 23:58 General: No acute distress HEENT: Atraumatic Neck: Thyromegaly Cardiovascular: Regular rate, Normal S1 Abdomen: Bowel sounds Assessment/Plan - Problem List Patient Problems: All Active Problems ALTERED MENTAL STATUS WITH FEVER (Acute) - Plan Plan: as per order sheet Nutritional Asmnt/Malnutr-PDOC - Dietary Evaluation Malnutrition Findings (Please click <Entered> for more info): Nutritional Asmnt/Malnutrition Start: 08/17/17 17: 13 Text: Status: Complete Freq: Document 08/17/17 17:13 VTAN (Rec: 08/17/17 17:29 [email or web address]) Nutritional Asmnt/Malnutrition Patient General Information Nutritional Screening Consult Diagnosis UTI, ALOC Pertinent Medical Hx/Surgical Hx HTN, CVA/TIA, dyslipidemia, MS , DM, HTN Subjective Information Nutrition Consult for Vince Score 11. Pt was seen resting in bed, RN at bedside providing meds. Spoke with [facility]OCN RN, reported that suspected DTI L heel. Current Diet Order/ Nutrition Support Mechanical Soft, Ground, BASHIR Patient / S.O Can't verbalize diet edu Pertinent Medications Vitamin C 500 mg daily, dulcolax, colace, heparin, culturelle, synthroid, protonix, NS IV, fleet enema Pertinent Labs H/H 11.1/32.5 L, Na 133 L, Cr 0.3 L, Gluc 94 08/16: TBili 5.2 H, AST 153 H, ALT 380 H, ALP 678 H, CK 15 L , ALB 3.4 L, Cholesterol 329 H Nutritional Hx/Data Height 1.63 m Height (Calculated Centimeters) 162.6 Current Weight (lbs) 53.524 kg Weight (Calculated Kilograms) 53.5 Weight (Calculated Grams) 14303.9 [place] Body Weight 120 lb, 55 kg % [place] Body Weight 98 Weight Status Approriate GI Symptoms GI Symptoms None Difficult in: Chewing Food Allergies No Cultural/Ethnic/Scientologist Belief Unable to obtain Usual diet at home Mechanical Soft, Ground, BASHIR Skin Integrity/Comment: Vince 11. Per WOCN RN note - possible SDTI L posterior Heel Estimated Nutritional Goals BEE in Kcals: Using Current wt Calories/Kcals/Kg 25-30 kcal/kg for Maintenance Kcals Calculated 0308-0923 kcal/day Protein: Using Current wt Protein g/k.3-1.5 gm/kg for Wound Healing Protein Calculated 70-81 gm/day Fluid: ml 6890-9635 ml/day (1 ml/kcal for Maintenance) Nutritional Problem 1. Problem Problem Increase protein needs related to Etiology altered skin integrity as evidenced by Signs/Symptoms: possible suspected DTI on L posterior heel Intervention/Recommendation Recommendations by RD Protein supplementation Comments 1. Continue Mechanical Soft, Ground, BASHIR diet per MD. 2. Consider Boost Glucose Control BID (500 kcal, 28 gm protein) if PO intakes consistently <50%. 3. Recommend Multi-vitamin with minerals (Theragran) 1 tab PO daily for optimal wound healing. 4. Consider Zinc Sulfate 220 mg x10 days for optimal wound healing. Expected Outcomes/Goals Expected Outcomes/Goals Goal: PO intakes to meet >80% of estimated needs; Nutrition wound healing protocol in place Monitor: PO intakes/tolerance, labs, skin integrity, GI function F/U 3-5 days as MODERATE risk (08/20-)
--- NOTE | 2017-08-19 14:55 | General Progress Note ---
Subjective - Review of Systems Service Date: 08/19/17 Subjective: sleeping, arousable Objective - Results Result Diagrams: 08/19/17 05:35 08/19/17 05:35 Recent Labs: Laboratory Last Values WBC 6.8 Th/cmm (4.8-10.8) 08/19/17 05:35 RBC 4.12 Mil/cmm (3.80-5.10) 08/19/17 05:35 Hgb 11.6 gm/dL (12-16) L 08/19/17 05:35 Hct 34.2 % (41.0-60) L 08/19/17 05:35 MCV 83.0 fl (81-100) 08/19/17 05:35 MCH 28.1 pg (27.0-31.0) 08/19/17 05:35 MCHC Differential 33.9 pg (28.0-36.0) 08/19/17 05:35 RDW 14.1 % (11.5-20.0) 08/19/17 05:35 Plt Count 365 Th/cmm (150-400) 08/19/17 05:35 MPV 7.2 fl 08/19/17 05:35 Neutrophils % 59.9 % (40.0-80.0) 08/19/17 05:35 Band Neutrophils % 1 % (0-10) 08/17/17 05:01 Lymphocytes % 33.8 % (20.0-50.0) 08/19/17 05:35 Monocytes % 4.0 % (2.0-10.0) 08/19/17 05:35 Eosinophils % 1.6 % (0.0-5.0) 08/19/17 05:35 Basophils % 0.7 % (0.0-2.0) 08/19/17 05:35 Neutrophils (Manual) 67 % (40-80) 08/17/17 05:01 Lymphocytes 26 % (20-50) 08/17/17 05:01 Monocytes 4 % (2-10) 08/17/17 05:01 Eosinophils 2 % (0-5) 08/17/17 05:01 PT 11.9 SECONDS (9.5-11.5) H 08/16/17 17:15 INR 1.13 (0.5-1.4) 08/16/17 17:15 PTT (Actin FS) 31.3 SECONDS (26.0-38.0) 08/16/17 17:15 Sodium 136 mEq/L (136-145) 08/19/17 05:35 Potassium 3.3 mEq/L (3.5-5.1) L 08/19/17 05:35 Chloride 102 mEq/L (98-107) 08/19/17 05:35 Carbon Dioxide 27.0 mEq/L (21.0-31.0) 08/19/17 05:35 Anion Gap 10.3 (7.0-16.0) 08/19/17 05:35 BUN 4 mg/dL (7-25) L 08/19/17 05:35 Creatinine 0.2 mg/dL (0.6-1.2) L 08/19/17 05:35 Est GFR ( Amer) > 60.0 ml/min (>90) 08/19/17 05:35 Est GFR (Non-Af Amer) > 60.0 ml/min 08/19/17 05:35 BUN/Creatinine Ratio 20.0 08/19/17 05:35 Glucose 100 mg/dL (70-105) 08/19/17 05:35 Whole Bld Lactic Acid 0.81 mmol/L (0.60-1.99) 08/16/17 17:15 Uric Acid 2.2 mg/dL (2.3-6.6) L 08/19/17 05:35 Calcium 8.9 mg/dL (8.6-10.3) 08/19/17 05:35 Phosphorus 2.4 mg/dL (2.5-5.0) L 08/19/17 05:35 Magnesium 1.8 mg/dL (1.9-2.7) L 08/19/17 05:35 Total Bilirubin 5.2 mg/dL (0.3-1.0) H 08/16/17 17:15 AST 153 U/L (13-39) H 08/16/17 17:15 ALT 380 U/L (7-52) H 08/16/17 17:15 Alkaline Phosphatase 678 U/L (34-104) H 08/16/17 17:15 Ammonia 69 umol/L (16-53) H 08/19/17 05:35 Creatine Kinase 15 U/L (30-223) L 08/16/17 17:15 Troponin I 0.02 ng/mL (0.01-0.05) 08/16/17 17:15 B-Natriuretic Peptide 20.0 pg/mL (5.0-100.0) 08/16/17 17:15 Total Protein 6.9 gm/dL (6.0-8.3) 08/16/17 17:15 Albumin 3.4 gm/dL (3.7-5.3) L 08/16/17 17:15 Globulin 3.5 gm/dL 08/16/17 17:15 Albumin/Globulin Ratio 1.0 (1.0-1.8) 08/16/17 17:15 Triglycerides 128 mg/dL (<150) 08/16/17 17:15 Cholesterol 329 mg/dL (<200) H 08/16/17 17:15 LDL Cholesterol Direct 209 mg/dL (75-193) H 08/16/17 17:15 HDL Cholesterol 37 mg/dL (23-92) 08/16/17 17:15 TSH 3.92 uIU/ml (0.34-5.60) 08/19/17 05:35 Urine Source CLEAN C 08/16/17 17:15 Urine Color YELLOW 08/16/17 17:15 Urine Clarity HAZY (CLEAR) 08/16/17 17:15 Urine pH 7.0 (4.6 - 8.0) 08/16/17 17:15 Ur Specific [place] 1.015 (1.005-1.030) 08/16/17 17:15 Urine Protein 100 mg/dL (NEGATIVE) H 08/16/17 17:15 Urine Glucose (UA) NEGATIVE mg/dL (NEGATIVE) 08/16/17 17:15 Urine Ketones NEGATIVE mg/dL (NEGATIVE) 08/16/17 17:15 Urine Blood NEGATIVE (NEGATIVE) 08/16/17 17:15 Urine Nitrate POSITIVE (NEGATIVE) H 08/16/17 17:15 Urine Bilirubin MODERATE (NEGATIVE) H 08/16/17 17:15 Urine Urobilinogen 0.2 E.U./dL (0.2 - 1.0) 08/16/17 17:15 Ur Leukocyte Esterase TRACE (NEGATIVE) H 08/16/17 17:15 Urine RBC 0-1 /hpf (0-5) 08/16/17 17:15 Urine WBC 2-5 /hpf (0-5) 08/16/17 17:15 Ur Epithelial Cells MODERATE /lpf (FEW) 08/16/17 17:15 Amorphous Sediment MANY URATES (NONE SEEN) 08/16/17 17:15 Urine Bacteria MANY /hpf (NONE SEEN) 08/16/17 17:15 Urine Test NEGATIVE 08/16/17 17:15 - Physical Exam Vitals and I&O: Vital Signs Temp 96.8 F 08/19/17 12:00 Pulse 78 08/19/17 12:00 Resp 18 08/19/17 12:00 BP 145/71 08/19/17 12:00 Pulse Ox 98 08/19/17 12:00 Intake & Output 08/18/17 08/19/17 08/19/17 18:59 06:59 18:59 Intake Total 9007.683 0492.000 Output Total 2200 2350 Balance -908.333 -1225.000 Weight (lbs) 39.463 kg 64.909 kg Intake: Intake, IV Amount 452.279 4261.000 Levofloxacin 500mg/100mL 100 500 mg In 100 ml @ 100 mls/hr IV Q24HR [facility] Rx#: [id number] Sodium Chloride 0.9% 1, 541.667 925.000 000 ml @ 100 mls/hr IV . Q10H [facility] Rx#:[id number] Oral 750 100 Output: Urine 2200 2350 Other: Stool Characteristics Soft Soft Formed Active Medications: Current Medications Acetaminophen (Tylenol) 650 mg PO Q4H PRN PRN Reason: PAIN OR FEVER >100.4 Acetaminophen/Hydrocodone Bitart ([place] 5mg/325mg) 1 tab PO Q4H PRN PRN Reason: PAIN Stop: 10/15/17 23:58 Amlodipine Besylate (Norvasc) 5 mg PO DAILY [facility] Stop: 10/16/17 08:59 Last Admin: 08/19/17 09:18 Dose: 5 mg Ascorbic Acid (Vitamin C) 500 mg PO DAILY [facility] Stop: 10/16/17 08:59 Last Admin: 08/19/17 09:18 Dose: 500 mg Aspirin (Aspirin Chewable) 81 mg PO DAILY [facility] Stop: 10/16/17 08:59 Last Admin: 08/19/17 09:18 Dose: 81 mg Bisacodyl (Dulcolax 10 Mg Supp) 10 mg RC Q72H PRN PRN Reason: CONSTIPATION (NO BM) Stop: 10/15/17 23:58 Carbamazepine (Tegretol) 400 mg PO QID [facility] PRN Reason: Protocol Stop: 10/16/17 08:59 Last Admin: 08/19/17 12:30 Dose: 400 mg Docusate Sodium (Colace) 250 mg PO BID [facility] Stop: 10/16/17 08:59 Last Admin: 08/19/17 09:18 Dose: 250 mg Fluoxetine HCl (Prozac) 10 mg PO DAILY [facility] PRN Reason: Protocol Stop: 10/16/17 08:59 Last Admin: 08/19/17 09:19 Dose: 10 mg Heparin Sodium (Porcine) (Heparin) 5,000 units SUBQ Q12HR [facility] Stop: 10/16/17 20:59 Last Admin: 08/19/17 09:20 Dose: 5,000 units Sodium Chloride (Nacl 0.9%) 1,000 mls @ 100 mls/hr IV .Q10H [facility] Stop: 10/15/17 23:58 Last Admin: 08/19/17 06:47 Dose: 100 mls/hr Levofloxacin (Levaquin Pb) 500 mg in 100 mls @ 100 mls/hr IV Q24HR [facility] Stop: 10/16/17 20:59 Last Infusion: 08/19/17 06:09 Dose: Infused Lactobacillus Rhamnosus (Culturelle) 1 each PO DAILY [facility] Stop: 10/16/17 16:59 Last Admin: 08/19/17 09:18 Dose: 1 each Levothyroxine Sodium (Synthroid) 0.05 mg PO QDAC [facility] Stop: 10/16/17 07:29 Last Admin: 08/19/17 06:32 Dose: 0.05 mg Miscellaneous (Glatiramer Acetate [Copaxone]) 40 mg SC MWF [facility] Stop: 10/17/17 08:59 Miscellaneous (Vte Chemical Prophylaxis Screen/ Admission) 1 ea MC PRN PRN PRN Reason: PROTOCOL Stop: 10/16/17 14:58 Miscellaneous (Probiotic Screen) 1 ea MC PRN PRN PRN Reason: PROTOCOL Stop: 10/16/17 15:47 Pantoprazole Sodium (Protonix) 40 mg PO DAILY [facility] Stop: 10/16/17 08:59 Last Admin: 08/19/17 09:18 Dose: 40 mg Sodium Phosphate (Fleet Enema) 135 ml RC Q24H PRN PRN Reason: Constipation Stop: 10/15/17 23:58 General: Alert, No acute distress HEENT: Atraumatic, PERRLA, EOMI, Mucous membr. moist/pink Neck: Supple, Thyromegaly Cardiovascular: Regular rate, Normal S1, Normal S2 Lungs: Clear to auscultation Abdomen: Bowel sounds, Soft Extremities: no Edema Neurological: Sensation intact Skin: no Rash Psych/Mental Status: Mood NL Assessment/Plan - Problem List Patient Problems: All Active Problems ALTERED MENTAL STATUS WITH FEVER (Acute) - Assessment Assessment: Hyponatremia better ALOC resolved MS cx UTI Chronic Liver Cirrhosis Hypothyroidism Essential HTN - Plan Plan: Lab - Result Diagrams 08/19/17 05:35 08/19/17 05:35 Current Medications Acetaminophen (Tylenol) 650 mg PO Q4H PRN PRN Reason: PAIN OR FEVER >100.4 Acetaminophen/Hydrocodone Bitart ([place] 5mg/325mg) 1 tab PO Q4H PRN PRN Reason: PAIN Stop: 10/15/17 23:58 Amlodipine Besylate (Norvasc) 5 mg PO DAILY [facility] Stop: 10/16/17 08:59 Last Admin: 08/19/17 09:18 Dose: 5 mg Ascorbic Acid (Vitamin C) 500 mg PO DAILY [facility] Stop: 10/16/17 08:59 Last Admin: 08/19/17 09:18 Dose: 500 mg Aspirin (Aspirin Chewable) 81 mg PO DAILY [facility] Stop: 10/16/17 08:59 Last Admin: 08/19/17 09:18 Dose: 81 mg Bisacodyl (Dulcolax 10 Mg Supp) 10 mg RC Q72H PRN PRN Reason: CONSTIPATION (NO BM) Stop: 10/15/17 23:58 Carbamazepine (Tegretol) 400 mg PO QID [facility] PRN Reason: Protocol Stop: 10/16/17 08:59 Last Admin: 08/19/17 12:30 Dose: 400 mg Docusate Sodium (Colace) 250 mg PO BID [facility] Stop: 10/16/17 08:59 Last Admin: 08/19/17 09:18 Dose: 250 mg Fluoxetine HCl (Prozac) 10 mg PO DAILY [facility] PRN Reason: Protocol Stop: 10/16/17 08:59 Last Admin: 08/19/17 09:19 Dose: 10 mg Heparin Sodium (Porcine) (Heparin) 5,000 units SUBQ Q12HR [facility] Stop: 10/16/17 20:59 Last Admin: 08/19/17 09:20 Dose: 5,000 units Sodium Chloride (Nacl 0.9%) 1,000 mls @ 100 mls/hr IV .Q10H [facility] Stop: 10/15/17 23:58 Last Admin: 08/19/17 06:47 Dose: 100 mls/hr Levofloxacin (Levaquin Pb) 500 mg in 100 mls @ 100 mls/hr IV Q24HR [facility] Stop: 10/16/17 20:59 Last Infusion: 08/19/17 06:09 Dose: Infused Lactobacillus Rhamnosus (Culturelle) 1 each PO DAILY [facility] Stop: 10/16/17 16:59 Last Admin: 08/19/17 09:18 Dose: 1 each Levothyroxine Sodium (Synthroid) 0.05 mg PO QDAC [facility] Stop: 10/16/17 07:29 Last Admin: 08/19/17 06:32 Dose: 0.05 mg Miscellaneous (Glatiramer Acetate [Copaxone]) 40 mg SC MWF [facility] Stop: 10/17/17 08:59 Miscellaneous (Vte Chemical Prophylaxis Screen/ Admission) 1 ea PRN PRN PRN Reason: PROTOCOL Stop: 10/16/17 14:58 Miscellaneous (Probiotic Screen) 1 ea PRN PRN PRN Reason: PROTOCOL Stop: 10/16/17 15:47 Pantoprazole Sodium (Protonix) 40 mg PO DAILY [facility] Stop: 10/16/17 08:59 Last Admin: 08/19/17 09:18 Dose: 40 mg Sodium Phosphate (Fleet Enema) 135 ml RC Q24H PRN PRN Reason: Constipation Stop: 10/15/17 23:58 Lab - Result Diagrams 08/19/17 05:35 08/19/17 05:35 Na up to 136 replace K continue ivf f/u electrolytes Nutritional Asmnt/Malnutr-PDOC - Dietary Evaluation Malnutrition Findings (Please click <Entered> for more info): Nutritional Asmnt/Malnutrition Start: 08/17/17 17: 13 Text: Status: Complete Freq: Document 08/17/17 17:13 PIPPA (Rec: 08/17/17 17:29 [email or web address]) Nutritional Asmnt/Malnutrition Patient General Information Nutritional Screening Consult Diagnosis UTI, ALOC Pertinent Medical Hx/Surgical Hx HTN, CVA/TIA, dyslipidemia, MS , DM, HTN Subjective Information Nutrition Consult for Vince Score 11. Pt was seen resting in bed, RN at bedside providing meds. Spoke with WOCN RN, reported that suspected DTI L heel. Current Diet Order/ Nutrition Support Mechanical Soft, Ground, BASHIR Patient / S.O Can't verbalize diet edu Pertinent Medications Vitamin C 500 mg daily, dulcolax, colace, heparin, culturelle, synthroid, protonix, NS IV, fleet enema Pertinent Labs H/H 11.1/32.5 L, Na 133 L, Cr 0.3 L, Gluc 94 08/16: TBili 5.2 H, AST 153 H, ALT 380 H, ALP 678 H, CK 15 L , ALB 3.4 L, Cholesterol 329 H Nutritional Hx/Data Height 1.63 m Height (Calculated Centimeters) 162.6 Current Weight (lbs) 53.524 kg Weight (Calculated Kilograms) 53.5 Weight (Calculated Grams) 54153.9 [place] Body Weight 120 lb, 55 kg % [place] Body Weight 98 Weight Status Approriate GI Symptoms GI Symptoms None Difficult in: Chewing Food Allergies No Cultural/Ethnic/Amish Belief Unable to obtain Usual diet at home Mechanical Soft, Ground, BASHIR Skin Integrity/Comment: Vince 11. Per WOCN RN note - possible SDTI L posterior Heel Estimated Nutritional Goals BEE in Kcals: Using Current wt Calories/Kcals/Kg 25-30 kcal/kg for Maintenance Kcals Calculated 1047-1302 kcal/day Protein: Using Current wt Protein g/k.3-1.5 gm/kg for Wound Healing Protein Calculated 70-81 gm/day Fluid: ml 3125-6729 ml/day (1 ml/kcal for Maintenance) Nutritional Problem 1. Problem Problem Increase protein needs related to Etiology altered skin integrity as evidenced by Signs/Symptoms: possible suspected DTI on L posterior heel Intervention/Recommendation Recommendations by RD Protein supplementation Comments 1. Continue Mechanical Soft, Ground, BASHIR diet per MD. 2. Consider Boost Glucose Control BID (500 kcal, 28 gm protein) if PO intakes consistently <50%. 3. Recommend Multi-vitamin with minerals (Theragran) 1 tab PO daily for optimal wound healing. 4. Consider Zinc Sulfate 220 mg x10 days for optimal wound healing. Expected Outcomes/Goals Expected Outcomes/Goals Goal: PO intakes to meet >80% of estimated needs; Nutrition wound healing protocol in place Monitor: PO intakes/tolerance, labs, skin integrity, GI function F/U 3-5 days as MODERATE risk (08/20-)
[2017-08-19] MEDS ORDERED: Potassium Phosphate 20 MMOLE in Sodium Chloride 0.9% 250 ML IV ONE (14:59)
[2017-08-19] MEDS ORDERED: Mag Sulfate 2gm/50mL Premix 2 GM/50 ML BAG IV ONE (14:59)
--- NOTE | 2017-08-19 15:22 | Consultation ---
Consult Note - Consult Note Service Date: 08/19/17 Referring Physician: Alexandra Oswald Consult Note: PHYSICIAN Consultation Note: Date of Admission: 08/16/17 Purpose of Consultation: Chief Complaint: Patient ESTELLA BOOGIE was admitted to [facility] with ACUTE UTI,ALOC. History of Present Illness: 62 year female with presented for aletered mental status, admitted for altered mental status. On initial presentation, she was afebrile and WBC Count was 10, 500. UA showed uti, so ID consult was called for further antibiotic management. she is afebrile. Past Medical History: Diagnoses METABOLIC ENCEPHALOPATHY (08/16/17) URINARY TRACT INFECTION, SITE NOT SPECIFIED (08/16/17) WEAKNESS (08/16/17) Allergies Allergy/AdvReac Type Severity Reaction Status Date / Time Tetanus Vaccines & Toxoid Allergy Verified 08/16/17 17:05 Vital Signs Temp 96.8 F 08/19/17 12:00 Pulse 78 08/19/17 12:00 Resp 18 08/19/17 12:00 BP 145/71 08/19/17 12:00 Pulse Ox 98 08/19/17 12:00 Intake & Output 08/18/17 08/19/17 08/19/17 18:59 06:59 18:59 Intake Total 5977.432 7987.000 Output Total 2200 2350 Balance -908.333 -1225.000 Weight (lbs) 39.463 kg 64.909 kg Intake: Intake, IV Amount 943.673 5638.000 Levofloxacin 500mg/100mL 100 500 mg In 100 ml @ 100 mls/hr IV Q24HR [facility] Rx#: [id number] Sodium Chloride 0.9% 1, 541.667 925.000 000 ml @ 100 mls/hr IV . Q10H [facility] Rx#:[id number] Oral 750 100 Output: Urine 2200 2350 Other: Stool Characteristics Soft Soft Formed Laboratory Results - last 24 hr 08/19/17 08/19/17 08/19/17 05:35 05:35 05:35 WBC 6.8 RBC 4.12 Hgb 11.6 L Hct 34.2 L MCV 83.0 MCH 28.1 MCHC Differential 33.9 RDW 14.1 Plt Count 365 MPV 7.2 Neutrophils % 59.9 Lymphocytes % 33.8 Monocytes % 4.0 Eosinophils % 1.6 Basophils % 0.7 Sodium 136 Potassium 3.3 L Chloride 102 Carbon Dioxide 27.0 Anion Gap 10.3 BUN 4 L Creatinine 0.2 L Est GFR ( Amer) > 60.0 Est GFR (Non-Af Amer) > 60.0 BUN/Creatinine Ratio 20.0 Glucose 100 Uric Acid 2.2 L Calcium 8.9 Phosphorus 2.4 L Magnesium 1.8 L Ammonia TSH 3.92 08/19/17 05:35 WBC RBC Hgb Hct MCV MCH MCHC Differential RDW Plt Count MPV Neutrophils % Lymphocytes % Monocytes % Eosinophils % Basophils % Sodium Potassium Chloride Carbon Dioxide Anion Gap BUN Creatinine Est GFR ( Amer) Est GFR (Non-Af Amer) BUN/Creatinine Ratio Glucose Uric Acid Calcium Phosphorus Magnesium Ammonia 69 H TSH Home Medication Medication Instructions Recorded Type Acetaminophen [8 Hour] 650 mg PO Q4H PRN 08/16/17 History Amlodipine Besylate 5 mg PO DAILY 08/16/17 History Ascorbic Acid [Vitamin C] 500 mg PO DAILY 08/16/17 History Aspirin [Aspirin Chewable] 81 mg PO DAILY 08/16/17 History Bisacodyl [Dulcolax 10 Mg Supp] 10 mg RC Q72H PRN 08/16/17 History Docusate Sodium [Colace] 250 mg PO BID 08/16/17 History Docusate Sodium/Senna [Senna Plus 2 tab PO BID 08/16/17 History 50 mg-8.6 mg] FLUoxetine HCL [PROzac] 10 mg PO DAILY 08/16/17 History Fleet Enema [Fleet Enema] 135 ml RC Q24H PRN 08/16/17 History Glatiramer Acetate [Copaxone] 40 mg SC MWF 08/16/17 History Hydrocodone/APAP 5mg/325mg [[place] 1 tab PO Q4H PRN 08/16/17 History 5mg/325mg] Lactose-Reduced Food [Ensure Plus 8 oz PO BID 08/16/17 History 240 ml] Levothyroxine [Synthroid] 0.05 mg PO QDAC 08/16/17 History Multivitamin w/ Minerals 1 tab PO DAILY 08/16/17 History [Theragran M] Omeprazole 20 mg PO DAILY 08/16/17 History Pantoprazole Sodium [Protonix] 40 mg PO DAILY 08/16/17 History Primidone [Mysoline] 250 mg PO BID 08/16/17 History carBAMazepine [TEGretol*] 400 mg PO QID 08/16/17 History Current Medications Generic Name Dose Route Start Last Admin Trade Name Freq PRN Reason Stop Dose Admin Acetaminophen 650 mg 08/16/17 23:59 Tylenol PO Q4H PRN PAIN OR FEVER >100.4 Acetaminophen/Hydrocodone Bitart 1 tab 08/16/17 23:59 [place] 5mg/325mg PO 10/15/17 23:58 Q4H PRN PAIN Amlodipine Besylate 5 mg 08/17/17 09:00 08/19/17 09:18 Norvasc PO 10/16/17 08:59 5 mg DAILY [facility] Administration Ascorbic Acid 500 mg 08/17/17 09:00 08/19/17 09:18 Vitamin C PO 10/16/17 08:59 500 mg DAILY [facility] Administration Aspirin 81 mg 08/17/17 09:00 08/19/17 09:18 Aspirin Chewable PO 10/16/17 08:59 81 mg DAILY [facility] Administration Bisacodyl 10 mg 08/16/17 23:59 Dulcolax 10 Mg Supp RC 10/15/17 23:58 Q72H PRN CONSTIPATION (NO BM) Carbamazepine 400 mg 08/17/17 09:00 08/19/17 12:30 Tegretol PO 10/16/17 08:59 400 mg QID [facility] Administration Protocol Docusate Sodium 250 mg 08/17/17 09:00 08/19/17 09:18 Colace PO 10/16/17 08:59 250 mg BID [facility] Administration Fluoxetine HCl 10 mg 08/17/17 09:00 08/19/17 09:19 Prozac PO 10/16/17 08:59 10 mg DAILY [facility] Administration Protocol Heparin Sodium (Porcine) 5,000 units 08/17/17 21:00 08/19/17 09:20 Heparin SUBQ 10/16/17 20:59 5,000 units Q12HR [facility] Administration Sodium Chloride 1,000 mls @ 100 mls/hr 08/16/17 23:59 08/19/17 06:47 Nacl 0.9% IV 10/15/17 23:58 100 mls/hr .Q10H [facility] Administration Levofloxacin 500 mg in 100 mls @ 100 mls/hr 08/17/17 21:00 08/19/17 06:09 Levaquin Pb IV 10/16/17 20:59 Infused Q24HR [facility] Infusion Potassium Phosphate 20 mmole/ 256.6667 mls @ 42.5 mls/hr 08/19/17 14:59 Sodium Chloride IV 08/19/17 21:01 X1 ONE Magnesium Sulfate 2 gm in 50 mls @ 25 mls/hr 08/19/17 14:59 Magnesium Sulfate Premix IV 08/19/17 16:58 X1 ONE Lactobacillus Rhamnosus 1 each 08/17/17 17:00 08/19/17 09:18 Culturelle PO 10/16/17 16:59 1 each DAILY [facility] Administration Levothyroxine Sodium 0.05 mg 08/17/17 07:30 08/19/17 06:32 Synthroid PO 10/16/17 07:29 0.05 mg QDAC [facility] Administration Miscellaneous 40 mg 08/18/17 09:00 Glatiramer Acetate [Copaxone] SC 10/17/17 08:59 MWF [facility] Miscellaneous 1 ea 08/17/17 14:59 Vte Chemical Prophylaxis Screen/ Admission 10/16/17 14:58 PRN PRN PROTOCOL Miscellaneous 1 ea 08/17/17 15:48 Probiotic Screen 10/16/17 15:47 PRN PRN PROTOCOL Pantoprazole Sodium 40 mg 08/17/17 09:00 08/19/17 09:18 Protonix PO 10/16/17 08:59 40 mg DAILY [facility] Administration Sodium Phosphate 135 ml 08/16/17 23:59 Fleet Enema 10/15/17 23:58 Q24H PRN Constipation Review of Systems: A 12 point ROS was reviewed with the pertinent positive and negatives noted in the HPI. Social History Smoking Status Never smoker Drug Use No Alcohol Use No Family Medical History Family Medical History Start: 08/16/17 23: 58 Freq: ONCE Status: Active Document 08/16/17 23:58 AMBROCIO (Rec: 08/17/17 00:13 [email or web address]) Family Medical History Mother History Unknown Yes Physical Exam: General: Comfortable, bedridden. HEENT: Head; normocephalic, atraumatic. Oral cavity: moist pink tongue. Eyes: pallor is present. no icterus. Neck: supple, no JVD, no carotid bruit. Cardio: s1 and S2 WNL. Respiratory: Vesicular breath sounds. Abdominal: soft NT ND BS present. Genital/Urinary: deferred Extremities: NCCE Neurological: alert awake. Assessment: 1, UTI. 2. AMS improved. Plan: Will continue same treatment. nikita johnson on levaquin 250 mg po daily for [address] Oswald for involving me in taking care of this patient. Signed, Memo Allen M.D. [id number]
--- NOTE | 2017-08-20 23:47 | Discharge Summary ---
DATE OF DISCHARGE: 08/19/2017 HOSPITAL COURSE: This is a patient admitted for altered level of consciousness, metabolic encephalopathy, UTI, and history of quadriparesis. The patient was treated, the patient felt better, but the patient improved and the patient was seen by the infectious disease doctor and the patient was admitted on 08/16/2017 and the patient was discharged on 08/19/2017 back to and the patient to continue all her medications including new antibiotics and I will follow the patient. [facility]# [id number]
== END 2017-08-19 20:54 | disposition home or self-care (01) | DRG 689 ==
LOC: ER 16:46 → MSI 22:20 → TELE 08-17 00:17
PROVIDERS: ADMIT Internal Medicine; ATTEND Internal Medicine
DX: N39.0 Urinary tract infection, site not specified (principal); G93.41 Metabolic encephalopathy; R53.2 Functional quadriplegia; F03.90 Unspecified dementia, unspecified severity, without behavioral disturbance, psychotic disturbance, mood disturbance, and anxiety; K74.60 Unspecified cirrhosis of liver; E87.1 Hypo-osmolality and hyponatremia; I10 Essential (primary) hypertension; E78.5 Hyperlipidemia, unspecified; G40.909 Epilepsy, unspecified, not intractable, without status epilepticus; G35 Multiple sclerosis; M81.0 Age-related osteoporosis without current pathological fracture; F32.9 Major depressive disorder, single episode, unspecified; E03.9 Hypothyroidism, unspecified; M26.609 Unspecified temporomandibular joint disorder, unspecified side; Z88.7 Allergy status to serum and vaccine; Z83.3 Family history of diabetes mellitus; Z82.49 Family history of ischemic heart disease and other diseases of the circulatory system; Z90.710 Acquired absence of both cervix and uterus; Z86.73 Personal history of transient ischemic attack (TIA), and cerebral infarction without residual deficits
CPT/HCPCS: 36415-UA; 70450-TC; 71010-TC; 80048-TC; 80053-TC; 80061-TC; 81001-TC; 81025-TC; 82140-TC; 82550-TC; 83605; 83735-TC; 83880-TC; 84100-TC; 84443-TC; 84484-TC; 84550-TC; 85007-TC; 85025-TC; 85027-TC; 85610-TC; 85730-TC; 87086-90; 90732; 90799; 93005; 94760; J1644; J1956; J3475; J7030; Z7610

== ENCOUNTER 2018-10-05 08:13 | Inpatient (IN) | payer MEDICARE, MEDICAID ==
--- NOTE | 2018-10-05 08:18 | ED Physician Chart ---
ED Chief Complaint/HPI - Patient Information Date Seen:: 10/05/18 Time Seen:: 08:15 Chief Complaint:: ALOC History of Present Illness:: onset x one day of ALOC, AMS, fever, and lethargy; no report of trauma, H/As, S/ T, neck pain, cough, C/P, SOB, Abd. Pain, A/N/V/D/C, chills, or urinary s/s' pt is post-menopausal x 20 years Allergies:: Allergies Allergy/AdvReac Type Severity Reaction Status Date / Time Tetanus Vaccines and Toxoid Allergy Verified 08/16/17 17:05 [Tetanus Vaccines & Toxoid] Historian:: Patient, EMS Review:: Nurse's Note Reviewed, Old Chart Reviewed, EMS run form Reviewed ED Review of Systems - Review of Systems General/Constitutional: Fever, No chills, No weight loss, Weakness, No diaphoresis, No edema, No loss of appetite Skin: No skin lesions, No rash, No bruising Head: No headache, No light-headedness Eyes: No loss of vision, No pain, No diplopia ENT: No earache, No nasal drainage, No sore throat, No tinnitus Neck: No neck pain, No swelling, No thyromegaly, No stiffness, No mass noted Cardio Vascular: No chest pain, No palpitations, No PND, No orthopnea, No edema Pulmonary: No SOB, No cough, No sputum, No wheezing GI: No nausea, No vomiting, No diarrhea, No pain, No melena, No hematochezia, No constipation, No hematemesis G/U: No dysuria, No frequency, No hematuria, No 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, No abnormal vaginal bleed, No contraction Musculoskeletal: No bone or joint pain, No back pain, No muscle pain Endocrine: No polyuria, No polydipsia Psychiatric: Prior psych history, Depression, Anxiety, No suicidal ideation, No homicidal ideation, No auditory hallucination, No visual hallucination Hematopoietic: No bruising, No lymphadenopathy Allergic/Immuno: No urticaria, No angioedema Neurological: No syncope, No focal symptoms, Weakness, No paresthesia, No headache, No seizure, No dizziness, Confusion, No vertigo ED Past Medical History - Past Medical History Obtainable: Yes Past Medical History: HTN, Dyslipidemia, PUD/GERD, Seizures, Thyroid disorder, Arthritis Family History: HTN Social History: Non Smoker, No Alcohol, No Drug Use, Single, Care Facility Surgical History: None Psychiatricy History: Depression Medication: Reviewed Family Medical History - Family Member Mother History Unknown: Yes ED Physical Exam - Physical Examination General/Constitutional: Awake, Well-developed, well-nourished, Alert, No distress, GCS 15, Non-toxic appearing, Ambulatory Head: Atraumatic Eyes: Lids, conjuctiva normal, PERRL, EOMI Skin: Nl inspection, No rash, No skin lesions, No ecchymosis, No lymphadenopathy Other Skin comments:: Poor Turgor with dry MM ENMT: External ears, nose nl, TM canals nl, Nasal exam nl, Lips, teeth, gums nl , Oropharynx nl, Tonsils nl Neck: Nontender, Full ROM w/o pain, No JVD, No nuchal rigidity, No bruit, No mass, No stridor Respiratory: Nl effort/Exclusion Other Respiratory comments:: Lungs: + Rales and Rhonchi Cardio Vascular: RRR, No murmur, gallop, rubs, NL S1 S2, Carotid/Femoral/Distal pulses equal bilaterally GI: No tenderness/rebounding/guarding, No organomegaly, No hernia, Normal BS's, Nondistended, No mass/bruits, No McBurney tenderness : No CVA tenderness Extremities: No tenderness or effusion, Full ROM, normal strength in all extremities, No edema, Normal digits & nails Neuro/Psych: Alert/oriented, DTR's symmetric, Normal sensory exam, Normal motor strength, Judgement/insight normal, Mood normal, Normal gait, No focal deficits Misc: Normal back, No paraspinal tenderness ED Labs/Radiology/EKG Results - Lab Results Comments:: Reviewed - Radiology Results Comments:: CXR: Patchy RLL Infiltrate; Head CT Scan: + Sinus Disease - EKG Interpretations EKG Time:: 08:58 Rate & Rhythm: 116; ST Comments:: non-specific st-t changes ED Septic Shock - . Is Septic Shock (SBP<90, OR Lactate>4 mmol\L) present?: No ED Reassessment (Disposition) - Reassessment Reassessment Condition:: Improved - Diagnosis Diagnosis:: Dx: Fever; ALOC; AMS; Weakness; PNA; Sepsis; Lactic Acidosis; Hyperlipidemia; Tachycardia; Dehydration; Leukocytosis - Aftercare/Follow up Instructions Aftercare/Follow-Up Instructions:: Counseled pt regarding lab results/diagnosis & need follow up, Counseled pt & family regarding lab results/diagnosis & need follow up - Patient Disposition Discharge/Transfer:: Acute Care w/in this hosp Accepting Physician:: Dr. Kimmy Allen Time Called:: 929 Time Responded:: 09:30 Admitted to:: Telemetry Spoke to:: Dr. Kimmy Allen Admitting Medical Physician:: Dr. Kimmy Allen Condition at Disposition:: Stable, Improved
[2018-10-05] MEDS ORDERED: Sodium Chloride 0.9% 1,000 ML IV ONE (08:19)
[2018-10-05 08:47] LABS: pH 7.47 (7.35-7.45)
[2018-10-05 08:48] LABS: ALLEN TEST Yes
[2018-10-05 08:50] LABS: HEMOGLOBIN 13.8 gm/dL (12-16); WHITE BLOOD COUNT 11.7 Th/cmm (4.8-10.8)
[2018-10-05 08:55] LABS: HEMATOCRIT 41.8 % (41.0-60); RED BLOOD COUNT 5.11 Mil/cmm (3.80-5.10)
[2018-10-05 08:56] LABS: MEAN CELL VOLUME 81.7 fl (81-100); MEAN CORPUSCULAR HEMOGLOBIN 26.9 pg (27.0-31.0); MEAN PLATELET VOLUME 6.8 fl; PLATELET COUNT 327 Th/cmm (150-400)
[2018-10-05 09:05] LABS: INR 0.92 (0.5-1.4); PROTHROMBIN TIME (TEST) 9.6 SECONDS (9.5-11.5)
[2018-10-05 09:05] LABS: ALBUMIN 3.9 gm/dL (3.7-5.3); ALKALINE PHOSPHATASE 84 U/L (34-104); AMYLASE SERUM 28 U/L (29-103); ANION GAP 15.1 (7.0-16.0); BILIRUBIN,TOTAL 0.5 mg/dL (0.3-1.0); BUN - UREA NITROGEN 12 mg/dL (7-25); CALCIUM SERUM 9.8 mg/dL (8.6-10.3); CARBON DIOXIDE 26.5 mEq/L (21.0-31.0); CHLORIDE 98 mEq/L (98-107); CHOLESTEROL 333 mg/dL (<200); CREATININE - SERUM 0.2 mg/dL (0.6-1.2); CREATININE KINASE 20 U/L (30-223); GFR AFRICAN-AMERICAN > 60.0 ml/min (>90); GFR NON AFRICAN-AMERICAN > 60.0 ml/min; GLUCOSE 122 mg/dL (70-105); HDL -HIGH DENSITY LIPOPROTEIN 62 mg/dL (23-92); POTASSIUM SERUM 3.6 mEq/L (3.5-5.1); SGOT 16 U/L (13-39); SGPT/ALT 24 U/L (7-52); SODIUM SERUM 136 mEq/L (136-145); TOTAL PROTEIN,SERUM 7.8 gm/dL (6.0-8.3); TRIGLYCERIDES 157 mg/dL (<150)
--- NOTE | 2018-10-05 09:11 | Diagnostic Imaging Report ---
Head CT without intravenous contrast Indication: Altered level of consciousness Comparison: Head CT on 08/16/2017 Technique: Axial images were obtained from the vertex to the skull base without IV contrast. Coronal reconstructions were made. Total DLP: 684, [id number] FINDINGS: Images of the brain obtained without contrast demonstrate no evidence of an acute hemorrhage. Falx calcification is noted. Hyperostosis is noted. Atrophy is noted with moderate white matter disease. The ventricles and basal cisterns are patent. No mass effect or midline shift. No focal soft tissue swelling. Slight disconjugate gaze is noted. There is mucosal thickening of the paranasal sinus. There is partial opacification of right sphenoid sinus. No skull fracture identified. IMPRESSION: No evidence of acute intracranial hemorrhage. Atrophy. Moderate supratentorial white matter disease which is nonspecific and may be due to chronic microvessel ischemia. Slight disconjugate gaze, correlate clinically. Mild sinus disease.
[2018-10-05 09:26] LABS: LIPASE < 3 U/L (11-82)
[2018-10-05 09:29] LABS: BAND NEUTROPHILE 10 % (0-10); BASOPHIL 0 % (0-3); EOSINOPHIL 0 % (0-5); LYMPHOCYTE 9 % (20-50); MONOCYTE 5 % (2-10); NEUTROPHILS 76 % (40-80)
[2018-10-05] MEDS ORDERED: Levofloxacin 500mg/100mL 500 MG/100 ML BAG IV ONE ×2 (09:39→09:58)
--- NOTE | 2018-10-05 10:14 | Diagnostic Imaging Report ---
CHEST X-RAY: AP view INDICATION: pain COMPARISON: 08/16/2017 FINDINGS: Chronic lung changes are seen with faint increased left basal lung markings. There is no focal consolidation or pleural effusions The heart is normal in size. The osseous structures are intact. IMPRESSION: Faint increased left basal lung markings. Atelectasis versus infiltrate of the left base cannot be excluded.
[2018-10-05 10:52] LABS: URINE BILIRUBIN SMALL (NEGATIVE); URINE BLOOD LARGE (NEGATIVE); URINE GLUCOSE (UA) NEGATIVE (NEGATIVE); URINE KETONE 15 mg/dL (NEGATIVE); URINE LEUKOCYTE ESTERASE TRACE (NEGATIVE); URINE MICROSCOPIC INDICATED? YES; URINE NITRATE NEGATIVE (NEGATIVE); URINE PH 5.5 (4.6 - 8.0); URINE PROTEIN 100 mg/dL (NEGATIVE); URINE SOURCE MIDSTREAM
[2018-10-05] MEDS ORDERED: Non-Formulary Item 1 EA (Acetaminophen [8 Hour] 650 MG) PO PRN (10:57)
[2018-10-05] MEDS ORDERED: Fleet Enema 135 mL RC PRN (10:57)
[2018-10-05 11:07] LABS: URINE CLARITY CLOUDY (CLEAR); URINE COLOR DARK YELLOW
[2018-10-05 11:08] LABS: URINE AMORPHOUS SEDIMENT MODERATE URATES (NONE SEEN); URINE BACTERIA MANY /hpf (NONE SEEN); URINE EPITHELIAL CELLS MANY /lpf (FEW)
[2018-10-05] MEDS: Sodium Chloride 0.9% 1,000 ML IV SCH ×2 (11:21→18:11)
[2018-10-05 11:25] LABS: INF A SCREEN NEG FOR INF A; INF B SCREEN NEG FOR INF B
--- NOTE | 2018-10-05 14:24 | Diagnostic Imaging Report ---
Renal ultrasound HISTORY: Hematuria. COMPARISON: None Technique: Sonography of the kidneys and urinary bladder was performed in multiple planes. FINDINGS: Exam is limited due to body habitus. The right kidney measures 11.1 x 5.1 cm. No evidence of focal lesions or hydronephrosis. The left kidney measures 11.5 x 5.5 cm demonstrating what is probably a column of Mac. No discrete focal lesions. There is fullness of the left renal collecting system without evidence of minna hydronephrosis. Lainez catheter is seen within underdistended urinary bladder. No urinary bladder wall thickening. IMPRESSION: Fullness of the left renal collecting system without evidence of minna hydronephrosis. Probable column of Mac of the left mid kidney. No discrete focal lesions identified. If necessary, CT would further clarify. Lainez catheter within collapsed urinary bladder, limiting its evaluation.
[2018-10-05] MEDS: Hydrocodone/APAP 5mg/325mg Tab PO PRN (19:06)
[2018-10-06] MEDS: Sodium Chloride 0.9% 1,000 ML IV SCH ×2 (05:17→23:18)
--- NOTE | 2018-10-06 06:28 | History & Physical ---
ADMIT DATE: 10/05/2018 CHIEF COMPLAINT: Altered mental status, lethargy, fever. HISTORY OF PRESENT ILLNESS: The patient is 63-year-old male with a past medical history of dementia, hypertension, dyslipidemia, seizure disorder, thyroid disorder, arthritis, brought in from nursing facility for altered mental status, loss of consciousness, fever and lethargy. ALLERGIES: TETANUS VACCINE AND TOXOID. MEDICATIONS: Per medication reconciliation sheet. Antibiotic tam, the patient is currently receiving Zosyn and Zithromax. SOCIAL HISTORY: The patient lives in a nursing facility. No history of smoking, alcohol or drug use. PAST SURGICAL HISTORY: None. PSYCHIATRIC HISTORY: Depression. REVIEW OF SYSTEMS: As per the record: CONSTITUTIONAL: Denies fever. No chills, no weight loss, no weakness, no diaphoresis. SKIN: The patient has no lesion. No rash. HEENT: No diplopia, no photophobia, no sore throat. RESPIRATORY: The patient has occasional cough, no shortness of breath, no wheezing. GASTROINTESTINAL: The patient has no nausea, no vomiting, no diarrhea. No constipation. No hematemesis. GENITOURINARY: No dysuria, no frequency, no hematuria, no nocturia. MUSCULOSKELETAL: No muscle pain, no joint pain. NEUROLOGIC: No headache, no dizziness, no focal weakness. PHYSICAL EXAMINATION: VITAL SIGNS: Shows temperature is 98.3 degrees Fahrenheit, T-max is 102.5 degrees Fahrenheit, pulse 98, respirations 18, blood pressure is 120/70. On initial evaluation, the patient's pulse was 127. GENERAL: Appears comfortable lying in the bed, not in acute distress. HEENT: Head is normocephalic, atraumatic. Oral cavity moist, pink. Eyes: Pallor present, no icterus. PERRLA, EOMI. NECK: Supple, no JVD, no carotid bruit. Trachea in midline. CHEST: Bilateral breath sounds. Bilateral crackles present. HEART: S1, S2 within normal limits. Regular rhythm. No murmur, no gallop. ABDOMEN: Soft, nontender, nondistended. Bowel sounds present. EXTREMITIES: No cyanosis, no clubbing, no edema. NEUROLOGICAL: Alert and awake. LABORATORY DATA: Current lab shows WBC count is 11,700, hemoglobin 13.8, hematocrit 41.8, platelets are 327,000, neutrophil is 76%. Sodium is 136, potassium 3.6, chloride 98, bicarbonate is 26, BUN is 12, creatinine 0.2, glucose is 122. Initial lactic acid was 2.03 and afterwards it went up to 1.67. Influenza A and B screen is negative. Urinalysis shows many bacteria. Wbc's 2-5 and rbc's 10-25. Renal ultrasound was done. IMPRESSION: 1. Sepsis. 2. Pneumonia. 3. Urinary tract infection. RECOMMENDATIONS: Continue Zosyn and Levaquin at this time. Follow the sepsis workup. Recommend continue Zosyn and Levaquin. We will see how patient does tomorrow and go from there. JOB# [id number] ELSI
[2018-10-06 06:34] LABS: % BASOPHILS 0.4 % (0.0-2.0); % EOSINOPHILS 0.5 % (0.0-5.0); % LYMPHOCYTES 11.8 % (20.0-50.0); % MONOCYTES 6.9 % (2.0-10.0); % NEUTROPHILS 80.4 % (40.0-80.0); BASOPHILE ABSOLUTE 0.1 Th/cumm (0-0.2); EOSINOPHILE ABSOLUTE 0.1 Th/cmm (0.1-0.4); HEMATOCRIT 37.8 % (41.0-60); HEMOGLOBIN 12.2 gm/dL (12-16); LYMPHOCYTE ABSOLUTE 1.9 Th/cmm (1.5-3.0); MEAN CELL VOLUME 82.7 fl (81-100); MEAN CORPUSCULAR HEMOGLOBIN 26.7 pg (27.0-31.0); MEAN CORPUSCULAR HGB CONC 32.3 pg (28.0-36.0); MEAN PLATELET VOLUME 7.1 fl; MONOCYTE ABSOLUTE 1.1 Th/cmm (0.3-1.0); NEUTROPHILE ABSOLUTE 12.5 Th/cmm (1.8-8.0); RED BLOOD COUNT 4.57 Mil/cmm (3.80-5.10); RED CELL DISTRIBUTION WIDTH 12.9 % (11.5-20.0)
[2018-10-06 06:47] LABS: WHITE BLOOD COUNT 15.7 Th/cmm (4.8-10.8)
[2018-10-06 06:48] LABS: PLATELET COUNT 243 Th/cmm (150-400)
[2018-10-06 07:02] LABS: ALB/GLOB RATIO 0.9 (1.0-1.8); ALBUMIN 3.2 gm/dL (3.7-5.3); ALKALINE PHOSPHATASE 86 U/L (34-104); ANION GAP 12.1 (7.0-16.0); BILIRUBIN,TOTAL 0.4 mg/dL (0.3-1.0); BUN - UREA NITROGEN 7 mg/dL (7-25); CALCIUM SERUM 8.4 mg/dL (8.6-10.3); CHLORIDE 103 mEq/L (98-107); CREATININE - SERUM 0.2 mg/dL (0.6-1.2); GFR AFRICAN-AMERICAN > 60.0 ml/min (>90); GFR NON AFRICAN-AMERICAN > 60.0 ml/min; GLUCOSE 96 mg/dL (70-105); POTASSIUM SERUM 3.1 mEq/L (3.5-5.1); SGOT 14 U/L (13-39); SGPT/ALT 16 U/L (7-52); SODIUM SERUM 137 mEq/L (136-145); TOTAL PROTEIN,SERUM 6.6 gm/dL (6.0-8.3)
[2018-10-06] MEDS: Levothyroxine 0.05 Mg Tab PO SCH (07:24)
[2018-10-06] MEDS: Hydrocodone/APAP 5mg/325mg Tab PO PRN (07:25)
--- NOTE | 2018-10-06 08:27 | Diagnostic Imaging Report ---
Portable chest x-ray HISTORY: Cough Patient is rotated. The overall heart size appears normal. Allowing for the rotation in a poor inspiration, no definite focal pulmonary processes are seen. IMPRESSION: 1. No definite acute focal pulmonary processes
[2018-10-06] MEDS: Atorvastatin Calcium 10 MG TAB PO SCH (09:09)
[2018-10-06] MEDS: Multivitamin w/ Minerals Tab PO SCH (09:10)
[2018-10-06] MEDS: Aspirin 81mg Chewable Tab PO SCH (09:10)
[2018-10-06] MEDS: Lactobacillus Rhamnosus GG 15 Billion CFU CAP.SPRINK PO SCH (09:10)
[2018-10-06] MEDS: Pantoprazole 40 mg EC Tab PO SCH (09:10)
[2018-10-06] MEDS: Levofloxacin 500mg/100mL 500 MG/100 ML BAG IV SCH (09:30)
[2018-10-06] MEDS ORDERED: Potassium Chloride Elixir 20 mEq /15 mL UDC PO ONE (15:47)
--- NOTE | 2018-10-06 15:58 | Infectious Disease Prog Note ---
Infectious Disease Subjective - Review of Systems Service Date: 10/06/18 Subjective: There is no new change, no fever. Infectious Disease Objective - Results Result Diagrams: 10/06/18 05:55 10/06/18 05:55 Recent Labs: Laboratory Last Values WBC 15.7 Th/cmm (4.8-10.8) H D 10/06/18 05:55 RBC 4.57 Mil/cmm (3.80-5.10) 10/06/18 05:55 Hgb 12.2 gm/dL (12-16) 10/06/18 05:55 Hct 37.8 % (41.0-60) L 10/06/18 05:55 MCV 82.7 fl (81-100) 10/06/18 05:55 MCH 26.7 pg (27.0-31.0) L 10/06/18 05:55 MCHC Differential 32.3 pg (28.0-36.0) 10/06/18 05:55 RDW 12.9 % (11.5-20.0) 10/06/18 05:55 Plt Count 243 Th/cmm (150-400) D 10/06/18 05:55 MPV 7.1 fl 10/06/18 05:55 Add Manual Diff YES 10/05/18 08:35 Neutrophils % 80.4 % (40.0-80.0) H 10/06/18 05:55 Band Neutrophils % 10 % (0-10) 10/05/18 08:35 Lymphocytes % 11.8 % (20.0-50.0) L 10/06/18 05:55 Monocytes % 6.9 % (2.0-10.0) 10/06/18 05:55 Eosinophils % 0.5 % (0.0-5.0) 10/06/18 05:55 Basophils % 0.4 % (0.0-2.0) 10/06/18 05:55 Neutrophils (Manual) 76 % (40-80) 10/05/18 08:35 Lymphocytes 9 % (20-50) L 10/05/18 08:35 Monocytes 5 % (2-10) 10/05/18 08:35 Eosinophils 0 % (0-5) 10/05/18 08:35 Basophils 0 % (0-3) 10/05/18 08:35 PT 9.6 SECONDS (9.5-11.5) 10/05/18 08:40 INR 0.92 (0.5-1.4) 10/05/18 08:40 PTT (Actin FS) 24.4 SECONDS (26.0-38.0) L 10/05/18 08:40 Specimen Source Arterial 10/05/18 08:33 Sample Site Right Radial 10/05/18 08:33 pH 7.47 (7.35-7.45) H 10/05/18 08:33 pCO2 41.0 mmHg (35.0-45.0) 10/05/18 08:33 pO2 69.0 mmHg (80.0-100.0) L 10/05/18 08:33 HCO3 29.2 mEq/L (20.0-26.0) H 10/05/18 08:33 Base Excess 5.6 mEq/L (-3.0-3.0) H 10/05/18 08:33 O2 Saturation 95.0 % (92.0-100.0) 10/05/18 08:33 Antoine Test Yes 10/05/18 08:33 Vent Rate NA 10/05/18 08:33 Inspired O2 44 10/05/18 08:33 Tidal Volume NA 10/05/18 08:33 PEEP NA 10/05/18 08:33 Pressure (ins/psv/peep) NA 10/05/18 08:33 Critical Value L.Rejia 10/05/18 08:33 Sodium 137 mEq/L (136-145) 10/06/18 05:55 Potassium 3.1 mEq/L (3.5-5.1) L 10/06/18 05:55 Chloride 103 mEq/L (98-107) 10/06/18 05:55 Carbon Dioxide 25.0 mEq/L (21.0-31.0) 10/06/18 05:55 Anion Gap 12.1 (7.0-16.0) 10/06/18 05:55 BUN 7 mg/dL (7-25) 10/06/18 05:55 Creatinine 0.2 mg/dL (0.6-1.2) L 10/06/18 05:55 Est GFR ( Amer) > 60.0 ml/min (>90) 10/06/18 05:55 Est GFR (Non-Af Amer) > 60.0 ml/min 10/06/18 05:55 BUN/Creatinine Ratio 35.0 10/06/18 05:55 Glucose 96 mg/dL (70-105) 10/06/18 05:55 POC Glucose 91 MG/DL (70 - 105) 10/05/18 14:05 Whole Bld Lactic Acid 1.67 mmol/L (0.60-1.99) 10/05/18 12:49 Calcium 8.4 mg/dL (8.6-10.3) L 10/06/18 05:55 Total Bilirubin 0.4 mg/dL (0.3-1.0) 10/06/18 05:55 AST 14 U/L (13-39) 10/06/18 05:55 ALT 16 U/L (7-52) 10/06/18 05:55 Alkaline Phosphatase 86 U/L (34-104) 10/06/18 05:55 Creatine Kinase 20 U/L (30-223) L 10/05/18 08:35 Troponin I 0.03 ng/mL (0.01-0.05) 10/05/18 08:35 B-Natriuretic Peptide 34.5 pg/mL (5.0-100.0) 10/05/18 08:35 Total Protein 6.6 gm/dL (6.0-8.3) 10/06/18 05:55 Albumin 3.2 gm/dL (3.7-5.3) L 10/06/18 05:55 Globulin 3.4 gm/dL 10/06/18 05:55 Albumin/Globulin Ratio 0.9 (1.0-1.8) L 10/06/18 05:55 Triglycerides 157 mg/dL (<150) H 10/05/18 08:35 Cholesterol 333 mg/dL (<200) H 10/05/18 08:35 LDL Cholesterol Direct 243 mg/dL (75-193) H 10/05/18 08:35 HDL Cholesterol 62 mg/dL (23-92) 10/05/18 08:35 Amylase 28 U/L (29-103) L 10/05/18 08:35 Lipase < 3 U/L (11-82) L 10/05/18 08:35 Urine Source MIDSTREAM 10/05/18 09:50 Urine Color DARK YELLOW 10/05/18 09:50 Urine Clarity CLOUDY (CLEAR) H 10/05/18 09:50 Urine pH 5.5 (4.6 - 8.0) 10/05/18 09:50 Ur Specific [place] >= 1.030 (1.005-1.030) 10/05/18 09:50 Urine Protein 100 mg/dL (NEGATIVE) H 10/05/18 09:50 Urine Glucose (UA) NEGATIVE mg/dL (NEGATIVE) 10/05/18 09:50 Urine Ketones 15 mg/dL (NEGATIVE) H 10/05/18 09:50 Urine Blood LARGE (NEGATIVE) H 10/05/18 09:50 Urine Nitrate NEGATIVE (NEGATIVE) 10/05/18 09:50 Urine Bilirubin SMALL (NEGATIVE) H 10/05/18 09:50 Urine Urobilinogen 1.0 E.U./dL (0.2 - 1.0) 10/05/18 09:50 Ur Leukocyte Esterase TRACE (NEGATIVE) H 10/05/18 09:50 Urine RBC 10-25 /hpf (0-5) H 10/05/18 09:50 Urine WBC 2-5 /hpf (0-5) 10/05/18 09:50 Ur Epithelial Cells MANY /lpf (FEW) 10/05/18 09:50 Amorphous Sediment MODERATE URATES (NONE SEEN) 10/05/18 09:50 Urine Bacteria MANY /hpf (NONE SEEN) H 10/05/18 09:50 Influenza A (Rapid) NEG FOR INF A 10/05/18 10:40 Influenza B (Rapid) NEG FOR INF B 10/05/18 10:40 - Physical Exam Vitals and I&O: Vital Signs Temp 98.1 F 10/06/18 12:00 Pulse 97 10/06/18 12:00 Resp 18 10/06/18 12:00 BP 94/45 10/06/18 12:00 Pulse Ox 95 10/06/18 12:00 Intake & Output 10/05/18 10/06/18 10/06/18 18:59 06:59 18:59 Intake Total 2554.167 250 200 Output Total 250 900 Balance 2304.167 -650 200 Weight (lbs) 51.347 kg 51.965 kg Intake: Intake, IV Amount 2054.167 200 200 Levofloxacin 500mg/100mL 100 500 mg In 100 ml @ 100 mls/hr IV Q24HR [facility] Rx#: [id number] Levofloxacin 500mg/100mL 100 500 mg In 100 ml @ 100 mls/hr IV X1 ONE Rx#: [id number] Piperacillin Sodium/ 100 200 100 Tazobact 4.5 gm In Sodium Chloride 0.9% 100 ml @ 100 mls/hr IV Q8HR [facility] Rx #:[id number] Sodium Chloride 0.9% 1, 1000 000 ml @ 100 mls/hr IV . Q10H ONE Rx#:[id number] Sodium Chloride 0.9% 1, 854.167 000 ml @ 125 mls/hr IV . Q8H [facility] Rx#:[id number] Oral 500 50 Output: Urine 250 900 Other: # Bowel Movements 0 0 Weight Source Bedscale Bedscale Active Medications: Current Medications Acetaminophen (Tylenol) 650 mg PO Q4H PRN PRN Reason: MILD PAIN OR FEVER >100.4 Last Admin: 10/05/18 22:07 Dose: 650 mg Acetaminophen/Hydrocodone Bitart (Lenox 5mg/325mg) 1 tab PO Q4H PRN PRN Reason: MODERATE PAIN Stop: 12/04/18 10:56 Last Admin: 10/06/18 07:25 Dose: 1 tab Amlodipine Besylate (Norvasc) 5 mg PO DAILY [facility] Stop: 12/05/18 08:59 Last Admin: 10/06/18 09:10 Dose: 5 mg Ascorbic Acid (Vitamin C) 500 mg PO DAILY [facility] Stop: 12/05/18 08:59 Last Admin: 10/06/18 09:09 Dose: 500 mg Aspirin (Aspirin Chewable) 81 mg PO DAILY [facility] Stop: 12/05/18 08:59 Last Admin: 10/06/18 09:10 Dose: 81 mg Atorvastatin Calcium (Lipitor) 10 mg PO DAILY [facility]; Protocol Stop: 12/05/18 08:59 Last Admin: 10/06/18 09:09 Dose: 10 mg Bisacodyl (Dulcolax 10 Mg Supp) 10 mg RC Q72H PRN PRN Reason: CONSTIPATION (NO BM) Stop: 12/04/18 10:56 Carbamazepine (Tegretol) 400 mg PO QID [facility]; Protocol Stop: 12/04/18 12:59 Last Admin: 10/06/18 12:39 Dose: 400 mg Docusate Sodium (Colace) 250 mg PO BID [facility] Stop: 12/04/18 16:59 Last Admin: 10/06/18 09:09 Dose: 250 mg Fluoxetine HCl (Prozac) 10 mg PO DAILY [facility]; Protocol Stop: 12/05/18 08:59 Last Admin: 10/06/18 09:10 Dose: 10 mg Heparin Sodium (Porcine) (Heparin) 5,000 units SUBQ Q12HR [facility] Stop: 12/04/18 20:59 Last Admin: 10/06/18 09:11 Dose: Not Given Levofloxacin (Levaquin Pb) 500 mg in 100 mls @ 100 mls/hr IV Q24HR [facility] Stop: 12/05/18 09:59 Last Infusion: 10/06/18 10:30 Dose: Infused Piperacillin Sod/Tazobactam (Sod 4.5 gm/ Sodium Chloride) 100 mls @ 100 mls/hr IV Q8HR [facility] Stop: 12/04/18 12:59 Last Infusion: 10/06/18 13:39 Dose: Infused Sodium Chloride (Nacl 0.9%) 1,000 mls @ 60 mls/hr IV .[id number] [facility] Stop: 12/05/18 03:21 Last Admin: 10/06/18 05:17 Dose: 60 mls/hr Lactobacillus Rhamnosus (Culturelle 15b) 1 each PO DAILY [facility] Stop: 12/05/18 08:59 Last Admin: 10/06/18 09:10 Dose: 1 each Levothyroxine Sodium (Synthroid) 0.05 mg PO QDAC [facility] Stop: 12/05/18 07:29 Last Admin: 10/06/18 07:24 Dose: 0.05 mg Miscellaneous (Glatiramer Acetate [Copaxone]) 40 mg SC MWF [facility] Stop: 12/06/18 08:59 Pantoprazole Sodium (Protonix) 40 mg PO DAILY [facility] Stop: 12/05/18 08:59 Last Admin: 10/06/18 09:10 Dose: 40 mg Potassium Chloride (Potassium Chloride Elixir) 40 meq PO X1 ONE Stop: 10/06/18 15:48 Sodium Phosphate (Fleet Enema) 135 ml RC Q24H PRN PRN Reason: Constipation Stop: 12/04/18 10:56 Temazepam (Restoril) 15 mg PO HS PRN; Protocol PRN Reason: Insomnia Stop: 12/04/18 19:50 General: no acute distress, well developed, well nourished HEENT: atraumatic, normocephalic, PERRLA Neck: supple, no thyromegaly Cardiovascular: S1S2, regular Lungs: clear to auscultation bilaterally, clear to percussion Abdomen: soft, no tender, no distended Extremities: no cyanosis, no clubbing Neurological: awake, alert, oriented Skin: intact Infectious Disease Assmt/Plan - Assessment Assessment: 1. Sepsis. 2. Pneumonia. 3. Urinary tract infection. 4. Hypokaemia. - Plan Plan: Will continue Zosyn and levaquin. K- supplement.
[2018-10-07] MEDS: Levothyroxine 0.05 Mg Tab PO SCH (06:40)
[2018-10-07] MEDS ORDERED: GLATIRAMER ACETATE 40 MG SC SCH (09:00)
[2018-10-07] MEDS: Atorvastatin Calcium 10 MG TAB PO SCH (09:17)
[2018-10-07] MEDS: Multivitamin w/ Minerals Tab PO SCH (09:17)
[2018-10-07] MEDS: Lactobacillus Rhamnosus GG 15 Billion CFU CAP.SPRINK PO SCH (09:17)
[2018-10-07] MEDS: Pantoprazole 40 mg EC Tab PO SCH (09:17)
[2018-10-07] MEDS: Aspirin 81mg Chewable Tab PO SCH (09:18)
[2018-10-07] MEDS: Levofloxacin 500mg/100mL 500 MG/100 ML BAG IV SCH (09:37)
[2018-10-07] MEDS ORDERED: Probiotic Screen MC PRN (10:51)
[2018-10-07] MEDS: D5-0.9%NS 1,000 ML IV SCH (20:31)
[2018-10-08 06:01] LABS: % BASOPHILS 0.4 % (0.0-2.0); % EOSINOPHILS 0.9 % (0.0-5.0); % LYMPHOCYTES 16.6 % (20.0-50.0); % MONOCYTES 7.3 % (2.0-10.0); % NEUTROPHILS 74.8 % (40.0-80.0); EOSINOPHILE ABSOLUTE 0.1 Th/cmm (0.1-0.4); HEMATOCRIT 32.8 % (41.0-60); HEMOGLOBIN 10.8 gm/dL (12-16); LYMPHOCYTE ABSOLUTE 1.4 Th/cmm (1.5-3.0); MEAN CELL VOLUME 82.4 fl (81-100); MEAN CORPUSCULAR HEMOGLOBIN 27.1 pg (27.0-31.0); MEAN CORPUSCULAR HGB CONC 32.8 pg (28.0-36.0); MEAN PLATELET VOLUME 6.7 fl; MONOCYTE ABSOLUTE 0.6 Th/cmm (0.3-1.0); NEUTROPHILE ABSOLUTE 6.2 Th/cmm (1.8-8.0); PLATELET COUNT 329 Th/cmm (150-400); RED BLOOD COUNT 3.98 Mil/cmm (3.80-5.10); RED CELL DISTRIBUTION WIDTH 12.5 % (11.5-20.0); WHITE BLOOD COUNT 8.3 Th/cmm (4.8-10.8)
[2018-10-08 06:20] LABS: ALB/GLOB RATIO 0.8 (1.0-1.8); ALKALINE PHOSPHATASE 86 U/L (34-104); ANION GAP 12.4 (7.0-16.0); BILIRUBIN,TOTAL 0.5 mg/dL (0.3-1.0); BUN - UREA NITROGEN 5 mg/dL (7-25); CALCIUM SERUM 8.2 mg/dL (8.6-10.3); CARBON DIOXIDE 28.9 mEq/L (21.0-31.0); CHLORIDE 99 mEq/L (98-107); GLUCOSE 132 mg/dL (70-105); SGOT 14 U/L (13-39); SGPT/ALT 13 U/L (7-52); SODIUM SERUM 138 mEq/L (136-145); TOTAL PROTEIN,SERUM 6.6 gm/dL (6.0-8.3)
[2018-10-08 06:32] LABS: CREATININE - SERUM < 0.2 mg/dL (0.6-1.2); GFR AFRICAN-AMERICAN > 60.0 ml/min (>90); GFR NON AFRICAN-AMERICAN > 60.0 ml/min
[2018-10-08 06:34] LABS: POTASSIUM SERUM 2.3 mEq/L (3.5-5.1)
[2018-10-08] MEDS ORDERED: Potassium Chloride 20 mEq ER Tab PO ONE (07:19)
[2018-10-08] MEDS: Atorvastatin Calcium 10 MG TAB PO SCH (08:10)
[2018-10-08] MEDS: Lactobacillus Rhamnosus GG 15 Billion CFU CAP.SPRINK PO SCH (08:11)
[2018-10-08] MEDS: Levothyroxine 0.05 Mg Tab PO SCH (08:11)
[2018-10-08] MEDS: Multivitamin w/ Minerals Tab PO SCH (08:11)
[2018-10-08] MEDS: Pantoprazole 40 mg EC Tab PO SCH (08:12)
[2018-10-08] MEDS: Aspirin 81mg Chewable Tab PO SCH (08:12)
[2018-10-08] MEDS ORDERED: Potassium Chloride 40 MEQ, Lidocaine 1% 20mL Vial 25 MG in Sodium Chloride 0.9% 250 ML IV ONE (08:15)
[2018-10-08] MEDS: Levofloxacin 500mg/100mL 500 MG/100 ML BAG IV SCH (12:05)
--- NOTE | 2018-10-08 18:00 | Progress Notes ---
DATE: 10/08/2018 SUBJECTIVE: The patient is lying in the bed, not in acute distress. The patient has difficulty taking food. OBJECTIVE: VITAL SIGNS: Current vital signs shows temperature is 97.5 degrees Fahrenheit, pulse 100, respiration 18, blood pressure 137/74, oxygen saturation 97%. GENERAL: The patient is lying in the bed. HEENT: Head is normocephalic, atraumatic. Oral cavity moist, pink tongue. Eyes: No pallor, no icterus. Pupils PERRLA, EOMI. NECK: Supple, no JVD, no thyromegaly. Trachea in midline. CHEST AND LUNGS: Bilateral breath sounds. No crackles or wheezing. HEART: S1, S2 within normal limits. Regular rhythm. No murmur, no gallop. ABDOMEN: Soft, nontender, nondistended. Bowel sounds present. EXTREMITIES: No cyanosis, no clubbing, no edema. NEUROLOGIC: Alert and awake. CURRENT LABORATORY DATA: Shows WBC count 15,700, hemoglobin 12.2, hematocrit 37.8, platelets are 243,000, neutrophils 80%. Sodium is 137, potassium 3.1, chloride 103, bicarbonate is 25, BUN is 7, creatinine 2.2, glucose is 96. ASSESSMENT: 1. Leukocytosis, sepsis. 2. Pneumonia. 3. Urinary tract infection. 4. Hypokalemia. 5. History of dysphagia. RECOMMENDATION: Continue Zosyn and Levaquin. Check labs in the morning. NPO, swallow eval is pending. Start IV fluid, D5 normal saline. [facility]# [id number] [facility]
[2018-10-09] MEDS: D5-0.9%NS 1,000 ML IV SCH (01:41)
[2018-10-09 06:06] LABS: % BASOPHILS 0.6 % (0.0-2.0); % EOSINOPHILS 1.5 % (0.0-5.0); % MONOCYTES 9.7 % (2.0-10.0); % NEUTROPHILS 60.2 % (40.0-80.0); EOSINOPHILE ABSOLUTE 0.1 Th/cmm (0.1-0.4); HEMATOCRIT 31.2 % (41.0-60); HEMOGLOBIN 10.5 gm/dL (12-16); LYMPHOCYTE ABSOLUTE 1.7 Th/cmm (1.5-3.0); MEAN CELL VOLUME 81.1 fl (81-100); MEAN CORPUSCULAR HEMOGLOBIN 27.4 pg (27.0-31.0); MEAN CORPUSCULAR HGB CONC 33.8 pg (28.0-36.0); MEAN PLATELET VOLUME 6.1 fl; MONOCYTE ABSOLUTE 0.6 Th/cmm (0.3-1.0); NEUTROPHILE ABSOLUTE 3.6 Th/cmm (1.8-8.0); PLATELET COUNT 377 Th/cmm (150-400); RED BLOOD COUNT 3.85 Mil/cmm (3.80-5.10); RED CELL DISTRIBUTION WIDTH 12.9 % (11.5-20.0)
[2018-10-09] MEDS: Levothyroxine 0.05 Mg Tab PO SCH (06:33)
[2018-10-09 06:50] LABS: ANION GAP 12.6 (7.0-16.0); BUN - UREA NITROGEN 3 mg/dL (7-25); CALCIUM SERUM 8.4 mg/dL (8.6-10.3); CARBON DIOXIDE 26.6 mEq/L (21.0-31.0); CHLORIDE 103 mEq/L (98-107); GLUCOSE 106 mg/dL (70-105); POTASSIUM SERUM 3.2 mEq/L (3.5-5.1); SODIUM SERUM 139 mEq/L (136-145)
[2018-10-09 06:52] LABS: CREATININE - SERUM < 0.2 mg/dL (0.6-1.2); GFR AFRICAN-AMERICAN > 60.0 ml/min (>90); GFR NON AFRICAN-AMERICAN > 60.0 ml/min
--- NOTE | 2018-10-09 06:57 | Progress Notes ---
DATE: 10/08/2018 SUBJECTIVE: Still lying in the bed, not in acute distress. No fever. No chills. The patient still has difficulty swallowing food. OBJECTIVE: VITAL SIGNS: Current shows temperature is 98.3 degrees Fahrenheit, pulse 102, respirations 19, blood pressure 135/66. GENERAL: The patient is comfortable lying in bed, not in acute distress. HEENT: Head is normocephalic, atraumatic. Oral cavity moist, pink tongue. Eyes: No pallor, no icterus. PERRLA, EOMI. NECK: Supple, no JVD, no bruit. Trachea in midline. CHEST: Bilateral breath sounds. No crackles or wheezing. HEART: S1, S2 within normal limits. Regular rhythm. No murmur, no gallop. ABDOMEN: Soft, nontender, nondistended. Bowel sounds present. EXTREMITIES: No cyanosis, no clubbing, no edema. NEUROLOGIC: Alert and awake. CURRENT LABORATORY DATA: Shows WBC count is 8300, hemoglobin 10.8, hematocrit 32.8, platelets are 329,000, neutrophils 75%. Sodium is 138, potassium 2.3, repeat was 2.2, chloride 99, bicarb is 28.4, BUN is 5, creatinine 0.2, glucose is 132. IMPRESSION: 1. Leukocytosis, sepsis, improved. 2. Pneumonia, likely aspiration pneumonia. 3. Urinary tract infection. 4. Hypokalemia. 5. Dysphagia. 6. MS RECOMMENDATION: Continue Zosyn and Levaquin at this time, awaiting for swallow eval.. The patient is on n.p.o. status. Potassium was supplemented. We will check labs in the morning. Continue D5 normal saline and potassium chloride in the IV fluid also. Discussed with the RN in detail. JOB# [id number] ELSI
[2018-10-09] MEDS: Lactobacillus Rhamnosus GG 15 Billion CFU CAP.SPRINK PO SCH (08:44)
[2018-10-09] MEDS: Multivitamin w/ Minerals Tab PO SCH (08:44)
[2018-10-09] MEDS: Pantoprazole 40 mg EC Tab PO SCH (08:45)
[2018-10-09] MEDS: Aspirin 81mg Chewable Tab PO SCH (08:45)
[2018-10-09] MEDS: Atorvastatin Calcium 10 MG TAB PO SCH (08:45)
[2018-10-09] MEDS: Potassium Chloride 10 MEQ in D5-0.9%NS 1,000 ML IV SCH (08:58)
[2018-10-09] MEDS: Levofloxacin 500mg/100mL 500 MG/100 ML BAG IV SCH (09:09)
[2018-10-09] MEDS ORDERED: INTERFERON BETA 30 MCG SUBQ SCH (21:45)
--- NOTE | 2018-10-09 21:48 | Infectious Disease Prog Note ---
Infectious Disease Subjective - Review of Systems Service Date: 10/09/18 Subjective: There is no new change, no fever. Infectious Disease Objective - Results Result Diagrams: 10/09/18 06:01 10/09/18 06:01 Recent Labs: Laboratory Last Values WBC 6.0 Th/cmm (4.8-10.8) 10/09/18 06:01 RBC 3.85 Mil/cmm (3.80-5.10) 10/09/18 06:01 Hgb 10.5 gm/dL (12-16) L 10/09/18 06:01 Hct 31.2 % (41.0-60) L 10/09/18 06:01 MCV 81.1 fl (81-100) 10/09/18 06:01 MCH 27.4 pg (27.0-31.0) 10/09/18 06:01 MCHC Differential 33.8 pg (28.0-36.0) 10/09/18 06:01 RDW 12.9 % (11.5-20.0) 10/09/18 06:01 Plt Count 377 Th/cmm (150-400) 10/09/18 06:01 MPV 6.1 fl 10/09/18 06:01 Add Manual Diff YES 10/05/18 08:35 Neutrophils % 60.2 % (40.0-80.0) 10/09/18 06:01 Band Neutrophils % 10 % (0-10) 10/05/18 08:35 Lymphocytes % 28.0 % (20.0-50.0) 10/09/18 06:01 Monocytes % 9.7 % (2.0-10.0) 10/09/18 06:01 Eosinophils % 1.5 % (0.0-5.0) 10/09/18 06:01 Basophils % 0.6 % (0.0-2.0) 10/09/18 06:01 Neutrophils (Manual) 76 % (40-80) 10/05/18 08:35 Lymphocytes 9 % (20-50) L 10/05/18 08:35 Monocytes 5 % (2-10) 10/05/18 08:35 Eosinophils 0 % (0-5) 10/05/18 08:35 Basophils 0 % (0-3) 10/05/18 08:35 PT 9.6 SECONDS (9.5-11.5) 10/05/18 08:40 INR 0.92 (0.5-1.4) 10/05/18 08:40 PTT (Actin FS) 24.4 SECONDS (26.0-38.0) L 10/05/18 08:40 Specimen Source Arterial 10/05/18 08:33 Sample Site Right Radial 10/05/18 08:33 pH 7.47 (7.35-7.45) H 10/05/18 08:33 pCO2 41.0 mmHg (35.0-45.0) 10/05/18 08:33 pO2 69.0 mmHg (80.0-100.0) L 10/05/18 08:33 HCO3 29.2 mEq/L (20.0-26.0) H 10/05/18 08:33 Base Excess 5.6 mEq/L (-3.0-3.0) H 10/05/18 08:33 O2 Saturation 95.0 % (92.0-100.0) 10/05/18 08:33 Antoine Test Yes 10/05/18 08:33 Vent Rate NA 10/05/18 08:33 Inspired O2 44 10/05/18 08:33 Tidal Volume NA 10/05/18 08:33 PEEP NA 10/05/18 08:33 Pressure (ins/psv/peep) NA 10/05/18 08:33 Critical Value Lawson 10/05/18 08:33 Sodium 139 mEq/L (136-145) 10/09/18 06:01 Potassium 3.2 mEq/L (3.5-5.1) L 10/09/18 06:01 Chloride 103 mEq/L (98-107) 10/09/18 06:01 Carbon Dioxide 26.6 mEq/L (21.0-31.0) 10/09/18 06:01 Anion Gap 12.6 (7.0-16.0) 10/09/18 06:01 BUN 3 mg/dL (7-25) L 10/09/18 06:01 Creatinine < 0.2 mg/dL (0.6-1.2) L 10/09/18 06:01 Est GFR ( Amer) > 60.0 ml/min (>90) 10/09/18 06:01 Est GFR (Non-Af Amer) > 60.0 ml/min 10/09/18 06:01 BUN/Creatinine Ratio 15.0 10/09/18 06:01 Glucose 106 mg/dL (70-105) H 10/09/18 06:01 POC Glucose 91 MG/DL (70 - 105) 10/05/18 14:05 Whole Bld Lactic Acid 1.67 mmol/L (0.60-1.99) 10/05/18 12:49 Calcium 8.4 mg/dL (8.6-10.3) L 10/09/18 06:01 Magnesium 1.8 mg/dL (1.9-2.7) L 10/09/18 06:01 Total Bilirubin 0.5 mg/dL (0.3-1.0) 10/08/18 05:45 AST 14 U/L (13-39) 10/08/18 05:45 ALT 13 U/L (7-52) 10/08/18 05:45 Alkaline Phosphatase 86 U/L (34-104) 10/08/18 05:45 Creatine Kinase 20 U/L (30-223) L 10/05/18 08:35 Troponin I 0.03 ng/mL (0.01-0.05) 10/05/18 08:35 B-Natriuretic Peptide 34.5 pg/mL (5.0-100.0) 10/05/18 08:35 Total Protein 6.6 gm/dL (6.0-8.3) 10/08/18 05:45 Albumin 3.0 gm/dL (3.7-5.3) L 10/08/18 05:45 Globulin 3.6 gm/dL 10/08/18 05:45 Albumin/Globulin Ratio 0.8 (1.0-1.8) L 10/08/18 05:45 Triglycerides 157 mg/dL (<150) H 10/05/18 08:35 Cholesterol 333 mg/dL (<200) H 10/05/18 08:35 LDL Cholesterol Direct 243 mg/dL (75-193) H 10/05/18 08:35 HDL Cholesterol 62 mg/dL (23-92) 10/05/18 08:35 Amylase 28 U/L (29-103) L 10/05/18 08:35 Lipase < 3 U/L (11-82) L 10/05/18 08:35 Urine Source MIDSTREAM 10/05/18 09:50 Urine Color DARK YELLOW 10/05/18 09:50 Urine Clarity CLOUDY (CLEAR) H 10/05/18 09:50 Urine pH 5.5 (4.6 - 8.0) 12 09:50 Ur Specific [place] >= 1.030 (1.005-1.030) 10/05/18 09:50 Urine Protein 100 mg/dL (NEGATIVE) H 10/05/18 09:50 Urine Glucose (UA) NEGATIVE mg/dL (NEGATIVE) 10/05/18 09:50 Urine Ketones 15 mg/dL (NEGATIVE) H 10/05/18 09:50 Urine Blood LARGE (NEGATIVE) H 10/05/18 09:50 Urine Nitrate NEGATIVE (NEGATIVE) 10/05/18 09:50 Urine Bilirubin SMALL (NEGATIVE) H 10/05/18 09:50 Urine Urobilinogen 1.0 E.U./dL (0.2 - 1.0) 10/05/18 09:50 Ur Leukocyte Esterase TRACE (NEGATIVE) H 10/05/18 09:50 Urine RBC 10-25 /hpf (0-5) H 10/05/18 09:50 Urine WBC 2-5 /hpf (0-5) 10/05/18 09:50 Ur Epithelial Cells MANY /lpf (FEW) 10/05/18 09:50 Amorphous Sediment MODERATE URATES (NONE SEEN) 10/05/18 09:50 Urine Bacteria MANY /hpf (NONE SEEN) H 10/05/18 09:50 Influenza A (Rapid) NEG FOR INF A 10/05/18 10:40 Influenza B (Rapid) NEG FOR INF B 10/05/18 10:40 - Physical Exam Vitals and I&O: Vital Signs Temp 98.7 F 10/09/18 20:00 Pulse 103 10/09/18 20:00 Resp 20 10/09/18 20:00 BP 142/79 10/09/18 20:00 Pulse Ox 98 10/09/18 20:00 Intake & Output 10/09/18 10/09/18 10/10/18 06:59 18:59 06:59 Intake Total 200 100 Output Total 2800 Balance -2600 100 Weight (lbs) 54.885 kg 54.885 kg Intake: Intake, IV Amount 200 100 Piperacillin Sodium/ 200 100 Tazobact 4.5 gm In Sodium Chloride 0.9% 100 ml @ 100 mls/hr IV Q8HR [facility] Rx #:[id number] Output: Urine 2800 Other: Weight Source Bedscale Bedscale Active Medications: Current Medications Acetaminophen (Tylenol) 650 mg PO Q4H PRN PRN Reason: MILD PAIN OR FEVER >100.4 Last Admin: 10/06/18 23:22 Dose: 650 mg Acetaminophen/Hydrocodone Bitart ([place] 5mg/325mg) 1 tab PO Q4H PRN PRN Reason: MODERATE PAIN Stop: 12/04/18 10:56 Last Admin: 10/06/18 07:25 Dose: 1 tab Amlodipine Besylate (Norvasc) 5 mg PO DAILY [facility] Stop: 12/05/18 08:59 Last Admin: 10/09/18 08:44 Dose: 5 mg Ascorbic Acid (Vitamin C) 500 mg PO DAILY [facility] Stop: 12/05/18 08:59 Last Admin: 10/09/18 08:45 Dose: 500 mg Aspirin (Aspirin Chewable) 81 mg PO DAILY [facility] Stop: 12/05/18 08:59 Last Admin: 10/09/18 08:45 Dose: 81 mg Atorvastatin Calcium (Lipitor) 10 mg PO DAILY [facility]; Protocol Stop: 12/05/18 08:59 Last Admin: 10/09/18 08:45 Dose: 10 mg Bisacodyl (Dulcolax 10 Mg Supp) 10 mg RC Q72H PRN PRN Reason: CONSTIPATION (NO BM) Stop: 12/04/18 10:56 Carbamazepine (Tegretol) 400 mg PO QID [facility]; Protocol Stop: 12/04/18 12:59 Last Admin: 10/09/18 20:43 Dose: 400 mg Docusate Sodium (Colace) 250 mg PO BID [facility] Stop: 12/04/18 16:59 Last Admin: 10/09/18 17:37 Dose: 250 mg Fluoxetine HCl (Prozac) 10 mg PO DAILY [facility]; Protocol Stop: 12/05/18 08:59 Last Admin: 10/09/18 08:45 Dose: 10 mg Heparin Sodium (Porcine) (Heparin) 5,000 units SUBQ Q12HR [facility] Stop: 12/04/18 20:59 Last Admin: 10/09/18 20:43 Dose: 5,000 units Levofloxacin (Levaquin Pb) 500 mg in 100 mls @ 100 mls/hr IV Q24HR [facility] Stop: 12/05/18 09:59 Last Admin: 10/09/18 09:09 Dose: 100 mls/hr Piperacillin Sod/Tazobactam (Sod 4.5 gm/ Sodium Chloride) 100 mls @ 100 mls/hr IV Q8HR [facility] Stop: 12/04/18 12:59 Last Admin: 10/09/18 21:34 Dose: 100 mls/hr Potassium Chloride 10 meq/ (Dextrose/Sodium Chloride) 1,005 mls @ 50 mls/hr IV .Q20H6M [facility] Stop: 12/08/18 08:59 Last Admin: 10/09/18 08:58 Dose: 50 mls/hr Lactobacillus Rhamnosus (Culturelle 15b) 1 each PO DAILY [facility] Stop: 12/05/18 08:59 Last Admin: 10/09/18 08:44 Dose: 1 each Levothyroxine Sodium (Synthroid) 0.05 mg PO QDAC [facility] Stop: 12/05/18 07:29 Last Admin: 10/09/18 06:33 Dose: 0.05 mg Miscellaneous (Glatiramer Acetate [Copaxone]) 40 mg SC MWF [facility] Stop: 12/06/18 08:59 Miscellaneous (Probiotic Screen) 1 ea PRN PRN PRN Reason: PROTOCOL Stop: 12/06/18 10:50 Pantoprazole Sodium (Protonix) 40 mg PO DAILY [facility] Stop: 12/05/18 08:59 Last Admin: 10/09/18 08:45 Dose: 40 mg Sodium Phosphate (Fleet Enema) 135 ml RC Q24H PRN PRN Reason: Constipation Stop: 12/04/18 10:56 Temazepam (Restoril) 15 mg PO HS PRN; Protocol PRN Reason: Insomnia Stop: 12/04/18 19:50 General: no acute distress, cachectic HEENT: atraumatic, normocephalic, PERRLA, EOMI, moist mucous membrane Neck: supple, no thyromegaly, no lymphadenopathy, no rigid Cardiovascular: S1S2, regular, systolic murmur Lungs: clear to auscultation bilaterally, clear to percussion, no wheeze, no rhonchi Abdomen: soft, no tender, no distended, no mass, no rebound, no hepatomegaly, no splenomegaly Extremities: no cyanosis, no clubbing, no edema Neurological: awake, alert Skin: intact Infectious Disease Assmt/Plan - Assessment Assessment: 1. Sepsis. 2. Pneumonia. 3. Urinary tract infection. 4. Hypokaemia. 5. MS - Plan Plan: Will continue Zosyn and levaquin. K- supplement. Nutritional Asmnt/Malnutr-PDOC - Dietary Evaluation Malnutrition Findings (Please click <Entered> for more info): Nutritional Asmnt/Malnutrition Start: 10/06/18 16: 24 Text: Status: Complete Freq: Protocol: Document 10/06/18 16:24 [email or web address] (Rec: 10/06/18 16:36 [email or web address]) Nutritional Asmnt/Malnutrition Patient General Information Nutritional Screening High Risk Diagnosis PNA, sepsis Pertinent Medical Hx/Surgical Hx HTn, dyslipidemia, PUD/GERD, seizure, thyroid, arthritis, depression Subjective Information Pt seen sitting up in bed at time of visit. Nurse was assisting with lunch. Pt was confused, unclear speech. Pt ate slowly. Per EMR, PO intake 25-50%. Current Diet Order/ Nutrition Support [facility] soft ground BASHIR Pertinent Medications vit C, lipitor, colace, culturelle, levaquin, synthroid, protonix, piperacillin, nacl 0.9% Pertinent Labs 10/06 K 3.1, Cr 0.2, Ca 8.4 10/05 Cr 0.2, Glucose 122 Nutritional Hx/Data Height 1.65 m Height (Calculated Centimeters) 165.1 Current Weight (lbs) 51.71 kg Weight (Calculated Kilograms) 51.7 Weight (Calculated Grams) 35417.5 Ethel Body Weight 125 Body Mass Index (BMI) 18.9 Weight Status Approriate GI Symptoms GI Symptoms None Last BM none noted Difficult in: None Skin Integrity/Comment: intact Current %PO Poor (25-49%) Estimated Nutritional Goals BEE in Kcals: Using Current wt Calories/Kcals/Kg 30-35 Kcals Calculated 9770-6309 Protein: Using Current wt Protein g/k.2 Protein Calculated 62 Fluid: ml 1560-1820ml (1ml/kcal) Nutritional Problem 1. Problem Problem inadequate food intake Etiology possible confusion, poor appetite Signs/Symptoms: PO intake 25-50% Malnutrition Alert Is there a minimum of two criteria No selected? Query Text:Check all the applicable criteria. A minimum of two criteria are recommended for diagnosis of either severe or non-severe malnutrition. Malnutrition Related to Morbid Obesity Malnutrition related to morbid obesity No Intervention/Recommendation Comments 1. Continue with [facility] soft ground diet as ordered. Add Ensure Enlive TID to increase nutrition intake. 2. Monitor PO intake, wt, labs and skin integrity 3. F/U as high risk in 2-3 days, 10/08-10/09 Expected Outcomes/Goals Expected Outcomes/Goals 1. Pt to meet at least 75% of nutritional needs via nutrition support with tolerance 2. Wt stability, skin to remain intact, labs to approach WNL.
[2018-10-10] MEDS: Levothyroxine 0.05 Mg Tab PO SCH (06:29)
[2018-10-10 06:30] LABS: % BASOPHILS 0.7 % (0.0-2.0); % EOSINOPHILS 2.5 % (0.0-5.0); % LYMPHOCYTES 34.5 % (20.0-50.0); % NEUTROPHILS 49.3 % (40.0-80.0); EOSINOPHILE ABSOLUTE 0.1 Th/cmm (0.1-0.4); HEMATOCRIT 30.9 % (41.0-60); HEMOGLOBIN 10.2 gm/dL (12-16); LYMPHOCYTE ABSOLUTE 1.9 Th/cmm (1.5-3.0); MEAN CELL VOLUME 81.9 fl (81-100); MEAN CORPUSCULAR HEMOGLOBIN 27.2 pg (27.0-31.0); MEAN CORPUSCULAR HGB CONC 33.2 pg (28.0-36.0); MEAN PLATELET VOLUME 6.4 fl; MONOCYTE ABSOLUTE 0.7 Th/cmm (0.3-1.0); NEUTROPHILE ABSOLUTE 2.9 Th/cmm (1.8-8.0); PLATELET COUNT 394 Th/cmm (150-400); RED BLOOD COUNT 3.77 Mil/cmm (3.80-5.10); RED CELL DISTRIBUTION WIDTH 12.7 % (11.5-20.0); WHITE BLOOD COUNT 5.6 Th/cmm (4.8-10.8)
[2018-10-10] MEDS: Levofloxacin 500mg/100mL 500 MG/100 ML BAG IV SCH (09:03)
[2018-10-10] MEDS: Potassium Chloride 10 MEQ in D5-0.9%NS 1,000 ML IV SCH (09:06)
[2018-10-10] MEDS: Lactobacillus Rhamnosus GG 15 Billion CFU CAP.SPRINK PO SCH (09:10)
[2018-10-10] MEDS: Aspirin 81mg Chewable Tab PO SCH (09:10)
[2018-10-10] MEDS: Atorvastatin Calcium 10 MG TAB PO SCH (09:11)
[2018-10-10] MEDS: Pantoprazole 40 mg EC Tab PO SCH (09:11)
[2018-10-10] MEDS: Multivitamin w/ Minerals Tab PO SCH (09:11)
[2018-10-10 09:28] LABS: ANION GAP 13.4 (7.0-16.0); BUN - UREA NITROGEN 3 mg/dL (7-25); CALCIUM SERUM 8.4 mg/dL (8.6-10.3); CARBON DIOXIDE 27.7 mEq/L (21.0-31.0); CHLORIDE 101 mEq/L (98-107); GLUCOSE 108 mg/dL (70-105); POTASSIUM SERUM 3.1 mEq/L (3.5-5.1); SODIUM SERUM 139 mEq/L (136-145)
[2018-10-10 09:51] LABS: CREATININE - SERUM < 0.2 mg/dL (0.6-1.2); GFR AFRICAN-AMERICAN > 60.0 ml/min (>90); GFR NON AFRICAN-AMERICAN > 60.0 ml/min
[2018-10-10] MEDS: Potassium Chloride 20 mEq ER Tab PO SCH (13:28)
--- NOTE | 2018-10-10 13:59 | Infectious Disease Prog Note ---
Infectious Disease Subjective - Review of Systems Service Date: 10/10/18 Subjective: There is no new change, no fever. Infectious Disease Objective - Results Result Diagrams: 10/10/18 05:45 10/10/18 05:45 Recent Labs: Laboratory Last Values WBC 5.6 Th/cmm (4.8-10.8) 10/10/18 05:45 RBC 3.77 Mil/cmm (3.80-5.10) L 10/10/18 05:45 Hgb 10.2 gm/dL (12-16) L 10/10/18 05:45 Hct 30.9 % (41.0-60) L 10/10/18 05:45 MCV 81.9 fl (81-100) 10/10/18 05:45 MCH 27.2 pg (27.0-31.0) 10/10/18 05:45 MCHC Differential 33.2 pg (28.0-36.0) 10/10/18 05:45 RDW 12.7 % (11.5-20.0) 10/10/18 05:45 Plt Count 394 Th/cmm (150-400) 10/10/18 05:45 MPV 6.4 fl 10/10/18 05:45 Add Manual Diff YES 10/05/18 08:35 Neutrophils % 49.3 % (40.0-80.0) 10/10/18 05:45 Band Neutrophils % 10 % (0-10) 10/05/18 08:35 Lymphocytes % 34.5 % (20.0-50.0) 10/10/18 05:45 Monocytes % 13.0 % (2.0-10.0) H 10/10/18 05:45 Eosinophils % 2.5 % (0.0-5.0) 10/10/18 05:45 Basophils % 0.7 % (0.0-2.0) 10/10/18 05:45 Neutrophils (Manual) 76 % (40-80) 10/05/18 08:35 Lymphocytes 9 % (20-50) L 10/05/18 08:35 Monocytes 5 % (2-10) 10/05/18 08:35 Eosinophils 0 % (0-5) 10/05/18 08:35 Basophils 0 % (0-3) 10/05/18 08:35 PT 9.6 SECONDS (9.5-11.5) 10/05/18 08:40 INR 0.92 (0.5-1.4) 10/05/18 08:40 PTT (Actin FS) 24.4 SECONDS (26.0-38.0) L 10/05/18 08:40 Specimen Source Arterial 10/05/18 08:33 Sample Site Right Radial 10/05/18 08:33 pH 7.47 (7.35-7.45) H 10/05/18 08:33 pCO2 41.0 mmHg (35.0-45.0) 10/05/18 08:33 pO2 69.0 mmHg (80.0-100.0) L 10/05/18 08:33 HCO3 29.2 mEq/L (20.0-26.0) H 10/05/18 08:33 Base Excess 5.6 mEq/L (-3.0-3.0) H 10/05/18 08:33 O2 Saturation 95.0 % (92.0-100.0) 10/05/18 08:33 Antoine Test Yes 10/05/18 08:33 Vent Rate NA 10/05/18 08:33 Inspired O2 44 10/05/18 08:33 Tidal Volume NA 10/05/18 08:33 PEEP NA 10/05/18 08:33 Pressure (ins/psv/peep) NA 10/05/18 08:33 Critical Value L.Rejia 10/05/18 08:33 Sodium 139 mEq/L (136-145) 10/10/18 05:45 Potassium 3.1 mEq/L (3.5-5.1) L 10/10/18 05:45 Chloride 101 mEq/L (98-107) 10/10/18 05:45 Carbon Dioxide 27.7 mEq/L (21.0-31.0) 10/10/18 05:45 Anion Gap 13.4 (7.0-16.0) 10/10/18 05:45 BUN 3 mg/dL (7-25) L 10/10/18 05:45 Creatinine < 0.2 mg/dL (0.6-1.2) L 10/10/18 05:45 Est GFR ( Amer) > 60.0 ml/min (>90) 10/10/18 05:45 Est GFR (Non-Af Amer) > 60.0 ml/min 10/10/18 05:45 BUN/Creatinine Ratio 15.0 10/10/18 05:45 Glucose 108 mg/dL (70-105) H 10/10/18 05:45 POC Glucose 91 MG/DL (70 - 105) 10/05/18 14:05 Whole Bld Lactic Acid 1.67 mmol/L (0.60-1.99) 10/05/18 12:49 Calcium 8.4 mg/dL (8.6-10.3) L 10/10/18 05:45 Magnesium 1.8 mg/dL (1.9-2.7) L 10/09/18 06:01 Total Bilirubin 0.5 mg/dL (0.3-1.0) 10/08/18 05:45 AST 14 U/L (13-39) 10/08/18 05:45 ALT 13 U/L (7-52) 10/08/18 05:45 Alkaline Phosphatase 86 U/L (34-104) 10/08/18 05:45 Creatine Kinase 20 U/L (30-223) L 10/05/18 08:35 Troponin I 0.03 ng/mL (0.01-0.05) 10/05/18 08:35 B-Natriuretic Peptide 34.5 pg/mL (5.0-100.0) 10/05/18 08:35 Total Protein 6.6 gm/dL (6.0-8.3) 10/08/18 05:45 Albumin 3.0 gm/dL (3.7-5.3) L 10/08/18 05:45 Globulin 3.6 gm/dL 10/08/18 05:45 Albumin/Globulin Ratio 0.8 (1.0-1.8) L 10/08/18 05:45 Triglycerides 157 mg/dL (<150) H 10/05/18 08:35 Cholesterol 333 mg/dL (<200) H 10/05/18 08:35 LDL Cholesterol Direct 243 mg/dL (75-193) H 10/05/18 08:35 HDL Cholesterol 62 mg/dL (23-92) 10/05/18 08:35 Amylase 28 U/L (29-103) L 10/05/18 08:35 Lipase < 3 U/L (11-82) L 10/05/18 08:35 Urine Source MIDSTREAM 10/05/18 09:50 Urine Color DARK YELLOW 10/05/18 09:50 Urine Clarity CLOUDY (CLEAR) H 10/05/18 09:50 Urine pH 5.5 (4.6 - 8.0) 10/05/18 09:50 Ur Specific [place] >= 1.030 (1.005-1.030) 10/05/18 09:50 Urine Protein 100 mg/dL (NEGATIVE) H 10/05/18 09:50 Urine Glucose (UA) NEGATIVE mg/dL (NEGATIVE) 10/05/18 09:50 Urine Ketones 15 mg/dL (NEGATIVE) H 10/05/18 09:50 Urine Blood LARGE (NEGATIVE) H 10/05/18 09:50 Urine Nitrate NEGATIVE (NEGATIVE) 10/05/18 09:50 Urine Bilirubin SMALL (NEGATIVE) H 10/05/18 09:50 Urine Urobilinogen 1.0 E.U./dL (0.2 - 1.0) 10/05/18 09:50 Ur Leukocyte Esterase TRACE (NEGATIVE) H 10/05/18 09:50 Urine RBC 10-25 /hpf (0-5) H 10/05/18 09:50 Urine WBC 2-5 /hpf (0-5) 10/05/18 09:50 Ur Epithelial Cells MANY /lpf (FEW) 10/05/18 09:50 Amorphous Sediment MODERATE URATES (NONE SEEN) 10/05/18 09:50 Urine Bacteria MANY /hpf (NONE SEEN) H 10/05/18 09:50 Influenza A (Rapid) NEG FOR INF A 10/05/18 10:40 Influenza B (Rapid) NEG FOR INF B 10/05/18 10:40 - Physical Exam Vitals and I&O: Vital Signs Temp 97.6 F 10/10/18 12:03 Pulse 68 10/10/18 12:03 Resp 19 10/10/18 12:03 BP 129/68 10/10/18 12:03 Pulse Ox 98 10/10/18 12:03 Intake & Output 10/09/18 10/10/18 10/10/18 18:59 06:59 18:59 Intake Total 200 1105 100 Balance 200 1105 100 Weight (lbs) 54.885 kg 54.885 kg Intake: Intake, IV Amount 200 1105 100 Levofloxacin 500mg/100mL 100 500 mg In 100 ml @ 100 mls/hr IV Q24HR [facility] Rx#: [id number] Piperacillin Sodium/ 100 100 100 Tazobact 4.5 gm In Sodium Chloride 0.9% 100 ml @ 100 mls/hr IV Q8HR [facility] Rx #:[id number] Potassium Chloride 10 meq 1005 In D5-0.9%Ns 1,000 ml @ 50 mls/hr IV .Q20H6M [facility] Rx#:[id number] Other: Weight Source Bedscale Bedscale Active Medications: Current Medications Acetaminophen (Tylenol) 650 mg PO Q4H PRN PRN Reason: MILD PAIN OR FEVER >100.4 Last Admin: 10/06/18 23:22 Dose: 650 mg Acetaminophen/Hydrocodone Bitart ([place] 5mg/325mg) 1 tab PO Q4H PRN PRN Reason: MODERATE PAIN Stop: 12/04/18 10:56 Last Admin: 10/06/18 07:25 Dose: 1 tab Amlodipine Besylate (Norvasc) 5 mg PO DAILY [facility] Stop: 12/05/18 08:59 Last Admin: 10/10/18 09:10 Dose: 5 mg Ascorbic Acid (Vitamin C) 500 mg PO DAILY [facility] Stop: 12/05/18 08:59 Last Admin: 10/10/18 09:11 Dose: 500 mg Aspirin (Aspirin Chewable) 81 mg PO DAILY [facility] Stop: 12/05/18 08:59 Last Admin: 10/10/18 09:10 Dose: 81 mg Atorvastatin Calcium (Lipitor) 10 mg PO DAILY [facility]; Protocol Stop: 12/05/18 08:59 Last Admin: 10/10/18 09:11 Dose: 10 mg Bisacodyl (Dulcolax 10 Mg Supp) 10 mg RC Q72H PRN PRN Reason: CONSTIPATION (NO BM) Stop: 12/04/18 10:56 Carbamazepine (Tegretol) 400 mg PO QID [facility]; Protocol Stop: 12/04/18 12:59 Last Admin: 10/10/18 13:23 Dose: 400 mg Docusate Sodium (Colace) 250 mg PO BID [facility] Stop: 12/04/18 16:59 Last Admin: 10/10/18 09:17 Dose: 250 mg Fluoxetine HCl (Prozac) 10 mg PO DAILY [facility]; Protocol Stop: 12/05/18 08:59 Last Admin: 10/10/18 09:11 Dose: 10 mg Heparin Sodium (Porcine) (Heparin) 5,000 units SUBQ Q12HR [facility] Stop: 12/04/18 20:59 Last Admin: 10/10/18 09:11 Dose: 5,000 units Levofloxacin (Levaquin Pb) 500 mg in 100 mls @ 100 mls/hr IV Q24HR [facility] Stop: 12/05/18 09:59 Last Admin: 10/10/18 09:03 Dose: 100 mls/hr Piperacillin Sod/Tazobactam (Sod 4.5 gm/ Sodium Chloride) 100 mls @ 100 mls/hr IV Q8HR [facility] Stop: 12/04/18 12:59 Last Admin: 10/10/18 13:23 Dose: 100 mls/hr Potassium Chloride 10 meq/ (Dextrose/Sodium Chloride) 1,005 mls @ 50 mls/hr IV .Q20H6M [facility] Stop: 12/08/18 08:59 Last Admin: 10/10/18 09:06 Dose: 50 mls/hr Lactobacillus Rhamnosus (Culturelle 15b) 1 each PO DAILY [facility] Stop: 12/05/18 08:59 Last Admin: 10/10/18 09:10 Dose: 1 each Levothyroxine Sodium (Synthroid) 0.05 mg PO QDAC [facility] Stop: 12/05/18 07:29 Last Admin: 10/10/18 06:29 Dose: 0.05 mg Miscellaneous (Glatiramer Acetate [Copaxone]) 40 mg SC MWF [facility] Stop: 12/06/18 08:59 Miscellaneous (Probiotic Screen) 1 ea PRN PRN PRN Reason: PROTOCOL Stop: 12/06/18 10:50 Miscellaneous (Interferon Beta-1a [Avonex Pen]) 30 mcg SUBQ QSUN [facility] Stop: 12/08/18 21:44 Pantoprazole Sodium (Protonix) 40 mg PO DAILY [facility] Stop: 12/05/18 08:59 Last Admin: 10/10/18 09:11 Dose: 40 mg Potassium Chloride (Klor-Con) 40 meq PO DAILY [facility] Stop: 12/09/18 12:59 Last Admin: 10/10/18 13:28 Dose: 40 meq Sodium Phosphate (Fleet Enema) 135 ml RC Q24H PRN PRN Reason: Constipation Stop: 12/04/18 10:56 Temazepam (Restoril) 15 mg PO HS PRN; Protocol PRN Reason: Insomnia Stop: 12/04/18 19:50 General: no acute distress, well developed, well nourished HEENT: atraumatic, normocephalic, PERRLA, EOMI Neck: supple, no thyromegaly Cardiovascular: S1S2, regular Lungs: clear to auscultation bilaterally, clear to percussion Abdomen: soft, no tender, no distended Extremities: no cyanosis, no clubbing, no edema Neurological: awake, alert Skin: intact Infectious Disease Assmt/Plan - Assessment Assessment: 1. Sepsis. 2. Pneumonia. 3. Urinary tract infection. 4. Hypokaemia. 5. MS - Plan Plan: Will continue Zosyn and levaquin. K- supplement. Nutritional Asmnt/Malnutr-PDOC - Dietary Evaluation Malnutrition Findings (Please click <Entered> for more info): Nutritional Asmnt/Malnutrition Start: 10/06/18 16: 24 Text: Status: Complete Freq: Protocol: Document 10/06/18 16:24 LCHENG (Rec: 10/06/18 16:36 [email or web address]) Nutritional Asmnt/Malnutrition Patient General Information Nutritional Screening High Risk Diagnosis PNA, sepsis Pertinent Medical Hx/Surgical Hx HTn, dyslipidemia, PUD/GERD, seizure, thyroid, arthritis, depression Subjective Information Pt seen sitting up in bed at time of visit. Nurse was assisting with lunch. Pt was confused, unclear speech. Pt ate slowly. Per EMR, PO intake 25-50%. Current Diet Order/ Nutrition Support mech soft ground BASHIR Pertinent Medications vit C, lipitor, colace, culturelle, levaquin, synthroid, protonix, piperacillin, nacl 0.9% Pertinent Labs 10/06 K 3.1, Cr 0.2, Ca 8.4 10/05 Cr 0.2, Glucose 122 Nutritional Hx/Data Height 1.65 m Height (Calculated Centimeters) 165.1 Current Weight (lbs) 51.71 kg Weight (Calculated Kilograms) 51.7 Weight (Calculated Grams) 19110.5 [place] Body Weight 125 Body Mass Index (BMI) 18.9 Weight Status Approriate GI Symptoms GI Symptoms None Last BM none noted Difficult in: None Skin Integrity/Comment: intact Current %PO Poor (25-49%) Estimated Nutritional Goals BEE in Kcals: Using Current wt Calories/Kcals/Kg 30-35 Kcals Calculated 7463-2846 Protein: Using Current wt Protein g/k.2 Protein Calculated 62 Fluid: ml 1560-1820ml (1ml/kcal) Nutritional Problem 1. Problem Problem inadequate food intake Etiology possible confusion, poor appetite Signs/Symptoms: PO intake 25-50% Malnutrition Alert Is there a minimum of two criteria No selected? Query Text:Check all the applicable criteria. A minimum of two criteria are recommended for diagnosis of either severe or non-severe malnutrition. Malnutrition Related to Morbid Obesity Malnutrition related to morbid obesity No Intervention/Recommendation Comments 1. Continue with [facility] soft ground diet as ordered. Add Ensure Enlive TID to increase nutrition intake. 2. Monitor PO intake, wt, labs and skin integrity 3. F/U as high risk in 2-3 days, 10/08-10/09 Expected Outcomes/Goals Expected Outcomes/Goals 1. Pt to meet at least 75% of nutritional needs via nutrition support with tolerance 2. Wt stability, skin to remain intact, labs to approach WNL.
[2018-10-11] MEDS: Potassium Chloride 10 MEQ in D5-0.9%NS 1,000 ML IV SCH (05:41)
[2018-10-11] MEDS: Levothyroxine 0.05 Mg Tab PO SCH (06:35)
[2018-10-11 06:52] LABS: ANION GAP 15.2 (7.0-16.0); BUN - UREA NITROGEN 3 mg/dL (7-25); CALCIUM SERUM 8.8 mg/dL (8.6-10.3); CARBON DIOXIDE 25.7 mEq/L (21.0-31.0); CHLORIDE 106 mEq/L (98-107); GLUCOSE 108 mg/dL (70-105); POTASSIUM SERUM 3.9 mEq/L (3.5-5.1); SODIUM SERUM 143 mEq/L (136-145)
[2018-10-11 07:13] LABS: CREATININE - SERUM < 0.2 mg/dL (0.6-1.2); GFR AFRICAN-AMERICAN > 60.0 ml/min (>90); GFR NON AFRICAN-AMERICAN > 60.0 ml/min
[2018-10-11 07:59] LABS: % BASOPHILS 1.1 % (0.0-2.0); % EOSINOPHILS 1.8 % (0.0-5.0); % LYMPHOCYTES 35.9 % (20.0-50.0); % MONOCYTES 9.2 % (2.0-10.0); BASOPHILE ABSOLUTE 0.1 Th/cumm (0-0.2); EOSINOPHILE ABSOLUTE 0.1 Th/cmm (0.1-0.4); HEMATOCRIT 31.8 % (41.0-60); HEMOGLOBIN 10.4 gm/dL (12-16); LYMPHOCYTE ABSOLUTE 2.4 Th/cmm (1.5-3.0); MEAN CELL VOLUME 81.1 fl (81-100); MEAN CORPUSCULAR HEMOGLOBIN 26.4 pg (27.0-31.0); MEAN CORPUSCULAR HGB CONC 32.6 pg (28.0-36.0); MONOCYTE ABSOLUTE 0.6 Th/cmm (0.3-1.0); NEUTROPHILE ABSOLUTE 3.4 Th/cmm (1.8-8.0); PLATELET COUNT 508 Th/cmm (150-400); RED BLOOD COUNT 3.92 Mil/cmm (3.80-5.10); WHITE BLOOD COUNT 6.6 Th/cmm (4.8-10.8)
[2018-10-11] MEDS: Lactobacillus Rhamnosus GG 15 Billion CFU CAP.SPRINK PO SCH (08:36)
[2018-10-11] MEDS: Aspirin 81mg Chewable Tab PO SCH (08:36)
[2018-10-11] MEDS: Pantoprazole 40 mg EC Tab PO SCH (08:37)
[2018-10-11] MEDS: Atorvastatin Calcium 10 MG TAB PO SCH (08:37)
[2018-10-11] MEDS: Multivitamin w/ Minerals Tab PO SCH (08:37)
[2018-10-11] MEDS: Potassium Chloride 20 mEq ER Tab PO SCH (08:39)
--- NOTE | 2018-10-11 09:46 | GI Progress Note ---
Subjective - Review of Systems Service Date: 10/11/18 Events since last encounter: No events Subjective: Better Objective - Results Result Diagrams: 10/11/18 07:50 10/11/18 06:00 Recent Labs: Laboratory Last Values WBC 6.6 Th/cmm (4.8-10.8) 10/11/18 07:50 RBC 3.92 Mil/cmm (3.80-5.10) 10/11/18 07:50 Hgb 10.4 gm/dL (12-16) L 10/11/18 07:50 Hct 31.8 % (41.0-60) L 10/11/18 07:50 MCV 81.1 fl (81-100) 10/11/18 07:50 MCH 26.4 pg (27.0-31.0) L 10/11/18 07:50 MCHC Differential 32.6 pg (28.0-36.0) 10/11/18 07:50 RDW 13.0 % (11.5-20.0) 10/11/18 07:50 Plt Count 508 Th/cmm (150-400) H 10/11/18 07:50 MPV 6.0 fl 10/11/18 07:50 Add Manual Diff YES 10/05/18 08:35 Neutrophils % 52.0 % (40.0-80.0) 10/11/18 07:50 Band Neutrophils % 10 % (0-10) 10/05/18 08:35 Lymphocytes % 35.9 % (20.0-50.0) 10/11/18 07:50 Monocytes % 9.2 % (2.0-10.0) 10/11/18 07:50 Eosinophils % 1.8 % (0.0-5.0) 10/11/18 07:50 Basophils % 1.1 % (0.0-2.0) 10/11/18 07:50 Neutrophils (Manual) 76 % (40-80) 10/05/18 08:35 Lymphocytes 9 % (20-50) L 10/05/18 08:35 Monocytes 5 % (2-10) 10/05/18 08:35 Eosinophils 0 % (0-5) 10/05/18 08:35 Basophils 0 % (0-3) 10/05/18 08:35 PT 9.6 SECONDS (9.5-11.5) 10/05/18 08:40 INR 0.92 (0.5-1.4) 10/05/18 08:40 PTT (Actin FS) 24.4 SECONDS (26.0-38.0) L 10/05/18 08:40 Specimen Source Arterial 10/05/18 08:33 Sample Site Right Radial 10/05/18 08:33 pH 7.47 (7.35-7.45) H 10/05/18 08:33 pCO2 41.0 mmHg (35.0-45.0) 10/05/18 08:33 pO2 69.0 mmHg (80.0-100.0) L 10/05/18 08:33 HCO3 29.2 mEq/L (20.0-26.0) H 10/05/18 08:33 Base Excess 5.6 mEq/L (-3.0-3.0) H 10/05/18 08:33 O2 Saturation 95.0 % (92.0-100.0) 10/05/18 08:33 Antoine Test Yes 10/05/18 08:33 Vent Rate NA 10/05/18 08:33 Inspired O2 44 10/05/18 08:33 Tidal Volume NA 10/05/18 08:33 PEEP NA 10/05/18 08:33 Pressure (ins/psv/peep) NA 10/05/18 08:33 Critical Value L.Pete 10/05/18 08:33 Sodium 143 mEq/L (136-145) 10/11/18 06:00 Potassium 3.9 mEq/L (3.5-5.1) 10/11/18 06:00 Chloride 106 mEq/L (98-107) 10/11/18 06:00 Carbon Dioxide 25.7 mEq/L (21.0-31.0) 10/11/18 06:00 Anion Gap 15.2 (7.0-16.0) 10/11/18 06:00 BUN 3 mg/dL (7-25) L 10/11/18 06:00 Creatinine < 0.2 mg/dL (0.6-1.2) L 10/11/18 06:00 Est GFR ( Amer) > 60.0 ml/min (>90) 10/11/18 06:00 Est GFR (Non-Af Amer) > 60.0 ml/min 10/11/18 06:00 BUN/Creatinine Ratio 15.0 10/11/18 06:00 Glucose 108 mg/dL (70-105) H 10/11/18 06:00 POC Glucose 91 MG/DL (70 - 105) 10/05/18 14:05 Whole Bld Lactic Acid 1.67 mmol/L (0.60-1.99) 10/05/18 12:49 Calcium 8.8 mg/dL (8.6-10.3) 10/11/18 06:00 Magnesium 1.8 mg/dL (1.9-2.7) L 10/09/18 06:01 Total Bilirubin 0.5 mg/dL (0.3-1.0) 10/08/18 05:45 AST 14 U/L (13-39) 10/08/18 05:45 ALT 13 U/L (7-52) 10/08/18 05:45 Alkaline Phosphatase 86 U/L (34-104) 10/08/18 05:45 Creatine Kinase 20 U/L (30-223) L 10/05/18 08:35 Troponin I 0.03 ng/mL (0.01-0.05) 10/05/18 08:35 B-Natriuretic Peptide 34.5 pg/mL (5.0-100.0) 10/05/18 08:35 Total Protein 6.6 gm/dL (6.0-8.3) 10/08/18 05:45 Albumin 3.0 gm/dL (3.7-5.3) L 10/08/18 05:45 Globulin 3.6 gm/dL 10/08/18 05:45 Albumin/Globulin Ratio 0.8 (1.0-1.8) L 10/08/18 05:45 Triglycerides 157 mg/dL (<150) H 10/05/18 08:35 Cholesterol 333 mg/dL (<200) H 10/05/18 08:35 LDL Cholesterol Direct 243 mg/dL (75-193) H 10/05/18 08:35 HDL Cholesterol 62 mg/dL (23-92) 10/05/18 08:35 Amylase 28 U/L (29-103) L 10/05/18 08:35 Lipase < 3 U/L (11-82) L 10/05/18 08:35 Urine Source MIDSTREAM 10/05/18 09:50 Urine Color DARK YELLOW 10/05/18 09:50 Urine Clarity CLOUDY (CLEAR) H 10/05/18 09:50 Urine pH 5.5 (4.6 - 8.0) 10/05/18 09:50 Ur Specific [place] >= 1.030 (1.005-1.030) 10/05/18 09:50 Urine Protein 100 mg/dL (NEGATIVE) H 10/05/18 09:50 Urine Glucose (UA) NEGATIVE mg/dL (NEGATIVE) 10/05/18 09:50 Urine Ketones 15 mg/dL (NEGATIVE) H 10/05/18 09:50 Urine Blood LARGE (NEGATIVE) H 10/05/18 09:50 Urine Nitrate NEGATIVE (NEGATIVE) 10/05/18 09:50 Urine Bilirubin SMALL (NEGATIVE) H 10/05/18 09:50 Urine Urobilinogen 1.0 E.U./dL (0.2 - 1.0) 10/05/18 09:50 Ur Leukocyte Esterase TRACE (NEGATIVE) H 10/05/18 09:50 Urine RBC 10-25 /hpf (0-5) H 10/05/18 09:50 Urine WBC 2-5 /hpf (0-5) 10/05/18 09:50 Ur Epithelial Cells MANY /lpf (FEW) 10/05/18 09:50 Amorphous Sediment MODERATE URATES (NONE SEEN) 10/05/18 09:50 Urine Bacteria MANY /hpf (NONE SEEN) H 10/05/18 09:50 Influenza A (Rapid) NEG FOR INF A 10/05/18 10:40 Influenza B (Rapid) NEG FOR INF B 10/05/18 10:40 - Physical Exam Vitals and I&O: Vital Signs Temp 96.6 F 10/11/18 08:50 Pulse 85 10/11/18 08:50 Resp 18 10/11/18 08:50 BP 146/96 10/11/18 08:50 Pulse Ox 93 10/11/18 08:50 Intake & Output 10/10/18 10/11/18 10/11/18 18:59 06:59 18:59 Intake Total 200 1130 Output Total 600 2000 Balance -400 -870 Weight (lbs) 54.885 kg 54.885 kg Intake: Intake, IV Amount 200 1105 Piperacillin Sodium/ 200 100 Tazobact 4.5 gm In Sodium Chloride 0.9% 100 ml @ 100 mls/hr IV Q8HR [facility] Rx #:[id number] Potassium Chloride 10 meq 1005 In D5-0.9%Ns 1,000 ml @ 50 mls/hr IV .Q20H6M [facility] Rx#:[id number] Oral 0 25 Tube Feeding 0 TPN/PPN 0 Blood Product 0 Lipid 0 Albumin 0 Other 0 Output: Urine 600 2000 Other: # Bowel Movements 1 0 Weight Source Estimated Bedscale Active Medications: Current Medications Acetaminophen (Tylenol) 650 mg PO Q4H PRN PRN Reason: MILD PAIN OR FEVER >100.4 Last Admin: 10/06/18 23:22 Dose: 650 mg Acetaminophen/Hydrocodone Bitart ([place] 5mg/325mg) 1 tab PO Q4H PRN PRN Reason: MODERATE PAIN Stop: 12/04/18 10:56 Last Admin: 10/06/18 07:25 Dose: 1 tab Amlodipine Besylate (Norvasc) 5 mg PO DAILY [facility] Stop: 12/05/18 08:59 Last Admin: 10/11/18 08:37 Dose: 5 mg Ascorbic Acid (Vitamin C) 500 mg PO DAILY [facility] Stop: 12/05/18 08:59 Last Admin: 10/11/18 08:36 Dose: 500 mg Aspirin (Aspirin Chewable) 81 mg PO DAILY [facility] Stop: 12/05/18 08:59 Last Admin: 10/11/18 08:36 Dose: 81 mg Atorvastatin Calcium (Lipitor) 10 mg PO DAILY [facility]; Protocol Stop: 12/05/18 08:59 Last Admin: 10/11/18 08:37 Dose: 10 mg Bisacodyl (Dulcolax 10 Mg Supp) 10 mg RC Q72H PRN PRN Reason: CONSTIPATION (NO BM) Stop: 12/04/18 10:56 Carbamazepine (Tegretol) 400 mg PO QID [facility]; Protocol Stop: 12/04/18 12:59 Last Admin: 10/11/18 08:37 Dose: 400 mg Docusate Sodium (Colace) 250 mg PO BID [facility] Stop: 12/04/18 16:59 Last Admin: 10/11/18 08:37 Dose: 250 mg Fluoxetine HCl (Prozac) 10 mg PO DAILY [facility]; Protocol Stop: 12/05/18 08:59 Last Admin: 10/11/18 08:37 Dose: 10 mg Heparin Sodium (Porcine) (Heparin) 5,000 units SUBQ Q12HR [facility] Stop: 12/04/18 20:59 Last Admin: 10/11/18 08:38 Dose: 5,000 units Levofloxacin (Levaquin Pb) 500 mg in 100 mls @ 100 mls/hr IV Q24HR [facility] Stop: 12/05/18 09:59 Last Admin: 10/10/18 09:03 Dose: 100 mls/hr Piperacillin Sod/Tazobactam (Sod 4.5 gm/ Sodium Chloride) 100 mls @ 100 mls/hr IV Q8HR [facility] Stop: 12/04/18 12:59 Last Admin: 10/11/18 05:29 Dose: 100 mls/hr Potassium Chloride 10 meq/ (Dextrose/Sodium Chloride) 1,005 mls @ 50 mls/hr IV .Q20H6M [facility] Stop: 12/08/18 08:59 Last Admin: 10/11/18 05:41 Dose: 50 mls/hr Lactobacillus Rhamnosus (Culturelle 15b) 1 each PO DAILY [facility] Stop: 12/05/18 08:59 Last Admin: 10/11/18 08:36 Dose: 1 each Levothyroxine Sodium (Synthroid) 0.05 mg PO QDAC [facility] Stop: 12/05/18 07:29 Last Admin: 10/11/18 06:35 Dose: 0.05 mg Miscellaneous (Glatiramer Acetate [Copaxone]) 40 mg SC MWF [facility] Stop: 12/06/18 08:59 Miscellaneous (Probiotic Screen) 1 ea MC PRN PRN PRN Reason: PROTOCOL Stop: 12/06/18 10:50 Miscellaneous (Interferon Beta-1a [Avonex Pen]) 30 mcg SUBQ QSUN [facility] Stop: 12/08/18 21:44 Pantoprazole Sodium (Protonix) 40 mg PO DAILY [facility] Stop: 12/05/18 08:59 Last Admin: 10/11/18 08:37 Dose: 40 mg Potassium Chloride (Klor-Con) 40 meq PO DAILY [facility] Stop: 12/09/18 12:59 Last Admin: 10/11/18 08:39 Dose: Not Given Sodium Phosphate (Fleet Enema) 135 ml RC Q24H PRN PRN Reason: Constipation Stop: 12/04/18 10:56 Temazepam (Restoril) 15 mg PO HS PRN; Protocol PRN Reason: Insomnia Stop: 12/04/18 19:50 General: Alert, No acute distress Cardiovascular: Regular rate, Normal S1, Normal S2 Lungs: Clear to auscultation, Normal air movement Abdomen: Bowel sounds, Soft, Other (not tender) Assessment/Plan - Assessment Assessment: Dysphagia - Plan Plan: Dysphagia Resolved. Eating Better GI tam stable
[2018-10-11] MEDS: Levofloxacin 500mg/100mL 500 MG/100 ML BAG IV SCH (11:11)
--- NOTE | 2018-10-11 16:09 | Consultation ---
DATE OF CONSULTATION: 10/10/2018 REASON FOR CONSULTATION: Dysphagia. HISTORY OF PRESENT ILLNESS: This consult was obtained through the courtesy of Dr. Memo Allen, for this 63-year-old with multiple medical problems including hypertension, seizure disorder, hyperlipidemia, thyroid disease, arthritis, dementia, possible developmental disability, admitted to the hospital for fever, lethargy, altered mental status, now has been choking on her food. The patient is responsive, but is very hard to communicate. PAST MEDICAL HISTORY: Dementia, hypertension, hyperlipidemia, seizure disorder, thyroid disease, arthritis, possible mental disability. PAST SURGICAL HISTORY: Not known. SOCIAL HISTORY: Nonsmoker, nonalcoholic, IV drug abuser. FAMILY HISTORY: Noncontributory. PAST SURGICAL HISTORY: Negative. REVIEW OF SYSTEMS: Unobtainable. ALLERGIES: TETANUS VACCINE and TOXOID. MEDICATIONS: The patient is on Tylenol, Melvin, Norvasc, vitamin C, aspirin, Lipitor, Dulcolax, Tegretol, Colace, Prozac, heparin, Culturelle, Levaquin, Synthroid, probiotic, Protonix, Zosyn, potassium. PHYSICAL EXAMINATION: GENERAL: The patient is awake, oriented to self, responsive. VITAL SIGNS: Blood pressure is 137/72, heart rate was 82, respiratory rate was 18, temperature is 97.9. HEAD AND NECK: Pupils reactive to light. Extraocular muscles could not be tested. Oral cavity, no lesion. NECK: Supple. CHEST: Good air entry. LUNGS: Showed few rhonchi. CARDIOVASCULAR: Regular rate and rhythm. No murmur or gallop. ABDOMEN: Soft, positive bowel sounds. EXTREMITIES: Lower extremities had deformities. CENTRAL NERVOUS SYSTEM: Unable to evaluate. LABORATORY DATA: CBC was remarkable for H and H of 10.2 and 30.9. Chemistry showed potassium low, has been persistently low at 3.1 even one time lower than that. Albumin is 3. IMPRESSION: A 63-year-old with possible ___ and dysphagia, await swallowing evaluation and if patient is positive, then we will continue with swallow evaluation. We will get video fluoroscopy and then might need PEG, then further recommendations to follow. Other medical problems such as seizure disorder, possible developmental instability, etc., as per Dr. Allen. Thank you Dr. Allen for allowing me to participate in the care of the patient. If you have any further questions, please let me know. JOB# [id number]
== END 2018-10-11 13:00 | DRG 871 ==
LOC: ER 08:13 → TELE 10:05 → MSI 10-10 13:58
PROVIDERS: ADMIT Internal Medicine Infectious Disease; ATTEND Internal Medicine Infectious Disease
DX: A41.9 Sepsis, unspecified organism (principal); J18.9 Pneumonia, unspecified organism; N39.0 Urinary tract infection, site not specified; I10 Essential (primary) hypertension; E78.5 Hyperlipidemia, unspecified; K21.9 Gastro-esophageal reflux disease without esophagitis; M19.90 Unspecified osteoarthritis, unspecified site; E86.0 Dehydration; E87.6 Hypokalemia; R13.10 Dysphagia, unspecified; G35 Multiple sclerosis; G40.909 Epilepsy, unspecified, not intractable, without status epilepticus; Z82.49 Family history of ischemic heart disease and other diseases of the circulatory system; Z88.7 Allergy status to serum and vaccine
CPT/HCPCS: 36415-UA; 36600-90; 70450-TC; 71045-TC; 76770-TC; 80048-TC; 80053-TC; 80061-TC; 81001-TC; 82150-TC; 82550-TC; 82803-TC; 82948-90; 83605; 83690-TC; 83735-TC; 83880-TC; 84132-TC; 84484-TC; 85007-TC; 85025-TC; 85610-TC; 85730-TC; 87086-90; 87804-TC; 93005; 94760; J1644; J1956; J2001; J2543; J3480; J7030; J7042; X3401; X4304; Z7610